=== PATIENT | female | born 1955 | race Caucasian/White ===

== ENCOUNTER 2019-10-24 12:29 | Emergency (ER) | payer OTHER ==
[~2019-10-24] VITALS: Ht 154.9 cm; Wt 63.5 kg
== END 2019-10-24 15:53 | disposition home or self-care (01) ==
LOC: ER 12:29 → EDBD 15:33 → ER 15:53
DX: S01.82XA Laceration with foreign body of other part of head, initial encounter (principal); W18.09XA Striking against other object with subsequent fall, initial encounter; Y93.89 Activity, other specified; Y92.488 Other paved roadways as the place of occurrence of the external cause; Y99.8 Other external cause status

== ENCOUNTER 2019-10-31 16:45 | Emergency (ER) | payer OTHER ==
[~2019-10-31] VITALS: Ht 167.6 cm; Wt 61.2 kg
== END 2019-10-31 18:24 | disposition home or self-care (01) ==
LOC: ER 16:45
DX: T81.33XD Disruption of traumatic injury wound repair, subsequent encounter (principal); Z48.02 Encounter for removal of sutures; S19.89 Other specified injuries of other specified part of neck

== ENCOUNTER 2020-07-28 23:44 | Inpatient (IN) | payer OTHER ==
[~2020-07-28] VITALS: Ht 167.6 cm; Wt 53.5 kg
[2020-07-29] MEDS ORDERED: GLIPIZIDE XL2.5 MG (00:03)
[2020-07-29] MEDS ORDERED: LEVOFLOXACIN5 ML (00:04)
--- NOTE | 2020-07-29 00:14 | NUR ---
SE RECIBE PTE EN SILLA DE COLLETTE, ALERTA DAPHNE NO ORIENTADA. PTE EN COMPANIA DE LINDQUIST COMADRE QUIEN REFIERE QUE LA PTE SE MUESTRA DESORIENTADA DESDE LA MANANA DE SHONDA Y QUE PRESENTA DESCONTROL EN LOS NIVELES DE AZUCAR EN LUIS MIGUEL. PTE CON DXT MAYOR DE 600MG/DL. PTE ES PRESENTADA A DR. BAIRD Y COLOCADA EN LA UNIDAD DE CRITICO CONECTADA A MONITOR CARDIACO, OXIMETRIA DE PULSO Y BARANDA ELEVADAS.
--- NOTE | 2020-07-29 02:09 | NUR ---
SE RECIBE PTE FEMENIANDE 68 YRS ALERTA CONCIENE Y TRANQUILA, LEVEMENTE DESORIE TADA EN TIEMPO. PTE LLEGA A LA JERALD DE EMERGENCIA POR AZUCAR MAYOR DE 600MG DL SE ACOMODA EN LA UNOIDAD DE CRITICO DE LA JERALD DE EMERGENCIA POR ORDEN DEL DR. BAIRD. SE COLOCA EN MONITOR CARIDIACO Y OXIEMTRIA SE LE REALIZA ANNI DE MUESTRAS DE SANCRE Y CULTIVOS DE LUIS MIGUEL ANAEROBICO Y AEROBICO. SE LE TOM CULTIVO DE ORINA Y MUESTRA DE ORINA. SE LE COMIENZA EN DRIP DE INSULINA REGULAR 100 EN 100.9NSS A 6 ML HRS POR IV PUMM . .9NSS [id number] A FULL DRIP . PTE SE LE DA A VICENTE TYLENOL 1 GR POR FIEBRE Y SE LE COMIENZA EN ANTIBIOTICO DE ROCEPHING 2 GR. SE LE MANTIENE BAJO OBSERVACION POR CAMBIOS.
--- NOTE | 2020-07-29 07:00 | NUR ---
PACIENTE ALERTA Y ORIENTADA EN OLYA BRAD ESFERAS, PRESENTA BUEN PATRON RESPIRATORIO Y LORETTA DE DOLOR. CONECTADA A MONITOR CARDIACO PRESENTANDO TAQUICARDIA SINOSAL (101-106 LAT/MIN), SPO2 98% EN AMBIENTE. CANALIZADA X 2 EN BRAZO RT, AMBAS PATENTES Y LIBRES DE S/S DE FLEBITIS E INFILTRACION, RECIBIENDO 0.45% NSS A 100 ML/RH. DR BAIRD ORDENA DESCONTINUAR 0.45% NSS Y ADMINISTRAR 0.9% NSS, SE REALIZAN CAMBIOS. PENDIENTE EVALUACION DE MEDICINA INTERNA CON DR Anel COLINDRES.
== END 2020-07-30 09:30 | disposition left against medical advice (07) | DRG 638 ==
LOC: ER 23:44 → ICU-2 07-29 11:29
PROVIDERS: ADMIT Internal Medicine; ATTEND Internal Medicine
PROC: BW28ZZZ Computerized Tomography (CT Scan) of Head (ICD-10-PCS; principal; 2020-07-29)
PROC: 4A033R1 Measurement of Arterial Saturation, Peripheral, Percutaneous Approach (ICD-10-PCS; 2020-07-29)
DX: E11.01 Type 2 diabetes mellitus with hyperosmolarity with coma (principal); E72.51 Non-ketotic hyperglycinemia; E11.65 Type 2 diabetes mellitus with hyperglycemia; I10 Essential (primary) hypertension; Z79.4 Long term (current) use of insulin; Z20.828 Contact with and (suspected) exposure to other viral communicable diseases

== ENCOUNTER → 2020-08-04 | Outpatient (CLI) | payer OTHER ==
[~2020-08-04] MED LIST: GLIPIZIDE XL2.5 MG; LEVOFLOXACIN5 ML
== END | disposition home or self-care (01) ==
LOC: RAD 12:10
DX: I10 Essential (primary) hypertension (principal)

== ENCOUNTER 2022-05-10 11:27 | Emergency (ER) | payer OTHER ==
[~2022-05-10] VITALS: Ht 167.6 cm; Wt 57.2 kg
[2022-05-10] MEDS ORDERED: NOVOLIN R100 UNIT/1 IM (12:24)
== END 2022-05-10 14:24 | disposition left against medical advice (07) ==
LOC: ER 11:27
DX: E11.65 Type 2 diabetes mellitus with hyperglycemia (principal); Z79.4 Long term (current) use of insulin; I10 Essential (primary) hypertension

== ENCOUNTER → 2023-06-29 | Emergency (ER) | payer OTHER ==
[~2023-06-29] VITALS: Ht 167.6 cm; Wt 67.1 kg
[~2023-06-29] MED LIST changes: +HUMULIN R100 UNIT/1; +LOTREL 10-20 M1 EACH; +NOVOLIN R100 UNIT/1 IM
== END | disposition left against medical advice (07) ==
LOC: ER 00:22
DX: Z53.21 Procedure and treatment not carried out due to patient leaving prior to being seen by health care provider (principal)

== ENCOUNTER 2023-07-15 19:04 | Inpatient (IN) | payer OTHER ==
[~2023-07-15] VITALS: Ht 167.6 cm; Wt 63.5 kg
[2023-07-15 20:52] LABS: PH,URINE 5.5 (5.0-8.0); URINE APPEARANCE Turbid; URINE BILIRRUBIN Negative (NEGATIVE); URINE BLOOD Moderate; URINE COLOR Yellow; URINE LEUKOCYTE Moderate; URINE NITRATE Positive; URINE PROTEIN Trace (NEGATIVE); URINE UROBILINOGEN 0.2 E.U./dl
[2023-07-15 20:55] LABS: URINE RBC 87.6 uL (0.0-20.8)
[2023-07-15 21:19] LABS: HEMATOCRIT 36.5 % (36.0-45.00); HEMOGLOBIN 11.5 g/dL (12.0-15.00); MEAN CELL VOLUME 103.2 fL (80.00-100.00); MEAN CORPUSCULAR HEMOGLOBIN 32.5 pg (27.00-32.0); MEAN CORPUSCULAR HGB CONC 31.4 g/dl (32.0-36.0); PLATELET COUNT 284 K/uL (150-450); RED BLOOD COUNT 3.54 M/uL (4.00-6.00); RED CELL DISTRIBUTION WIDTH 15.3 % (11.5-14.5)
[2023-07-15 21:29] LABS: URINE BACTERIA > 9821.2 uL (0.0-1933); URINE EPITHELIAL CELLS > 201.7 uL (0.0-38.8); URINE GLUCOSE >=1000 MG/DL (NEGATIVE); URINE MUCUS SCANT
[2023-07-15 21:30] LABS: URINE BACTERIA MANY
[2023-07-15 21:40] LABS: ALBUMIN 2.9 gm/dL (3.4-5.0); BILIRUBIN TOTAL 1.43 mg/dL (0.3-1.2); CALCIUM 8.4 mg/dL (8.5-10.1); CREATININE SERUM 1.05 mg/dL (0.55-1.02); GFR 51.96; GLOBULINA 3.4 G/DL (2.4-3.5); POTASSIUM 3.8 mEq/L (3.5-5.1); TOTAL PROTEIN 6.3 gm/dL (6.4-8.2)
[2023-07-16 01:00] LABS: ABG PH 7.369 (7.35-7.45); ABG PO2 123.1 mmHg (80-100); ABG pCO2 28.6 mmHg (35-45); BASE EXCESS -7.6 mmol/l; BICARBONATE 16.1 mmol/l (23-25); SaO2 98.5 %
[2023-07-16 02:18] LABS: CKMB 2.4 NG/ML (0.5-3.6)
[2023-07-16 03:54] LABS: allen test SATISFACTORY; o2 21 %; puncture site RADIAL RIGHT
[2023-07-16 16:04] LABS: CKMB 1.6 NG/ML (0.5-3.6)
[2023-07-16 22:35] LABS: CKMB 1.6 NG/ML (0.5-3.6)
[2023-07-17 07:33] LABS: HEMATOCRIT 27.4 % (36.0-45.00); HEMOGLOBIN 9.6 g/dL (12.0-15.00); MEAN CELL VOLUME 96.3 fL (80.00-100.00); MEAN CORPUSCULAR HEMOGLOBIN 33.9 pg (27.00-32.0); MEAN CORPUSCULAR HGB CONC 35.2 g/dl (32.0-36.0); PLATELET COUNT 271 K/uL (150-450); RED BLOOD COUNT 2.84 M/uL (4.00-6.00); RED CELL DISTRIBUTION WIDTH 15.1 % (11.5-14.5)
[2023-07-17 07:49] LABS: PARTIAL THROMBOPLASTIN TIME 26.3 SECONDS (22.0-34.0); PROTHROMBIN TIME 10.5 SECONDS (9.0-11.5)
[2023-07-17 07:50] LABS: ALBUMIN 2.1 gm/dL (3.4-5.0); BILIRUBIN TOTAL 0.54 mg/dL (0.3-1.2); BILIRUBIN,CONJUGATED 0.16 mg/dL (0.0-0.2); BILIRUBIN,UNCONJUGATED 0.38 mg/dL (0.0-0.6); CALCIUM 7.6 mg/dL (8.5-10.1); CHOL HDL RATIO 2.1 (0-5.0); CREATININE SERUM 0.68 mg/dL (0.55-1.02); GFR 85.79; GLOBULINA 2.7 G/DL (2.4-3.5); POTASSIUM 3.19 mEq/L (3.5-5.1); TOTAL PROTEIN 4.8 gm/dL (6.4-8.2)
[2023-07-17 07:53] LABS: C-REACTIVE PROTEIN 1.04 MG/DL (0.00-0.29)
[2023-07-18 07:59] LABS: URINE BACTERIA 59.2 uL (0.0-1933); URINE EPITHELIAL CELLS 27.6 uL (0.0-38.8); URINE RBC 108.6 uL (0.0-20.8)
[2023-07-18 08:18] LABS: URINE BILIRRUBIN SMALL (NEGATIVE); URINE BLOOD TRACE; URINE LEUKOCYTE NEGATIVE; URINE NITRATE NEGATIVE; URINE PROTEIN TRACE (NEGATIVE); URINE UROBILINOGEN 0.2 E.U./dl
[2023-07-18 08:19] LABS: URINE APPEARANCE SL CLOUDY; URINE COLOR YELLOW; URINE GLUCOSE 100 MG/DL (NEGATIVE)
[2023-07-18 12:24] LABS: ALBUMIN 2.1 gm/dL (3.4-5.0); BILIRUBIN TOTAL 0.89 mg/dL (0.3-1.2); CALCIUM 7.8 mg/dL (8.5-10.1); CREATININE SERUM 0.61 mg/dL (0.55-1.02); GFR 97.25; GLOBULINA 2.8 G/DL (2.4-3.5); POTASSIUM 4.93 mEq/L (3.5-5.1); TOTAL PROTEIN 4.9 gm/dL (6.4-8.2)
[2023-07-20 04:51] LABS: HEMATOCRIT 27.7 % (36.0-45.00); HEMOGLOBIN 9.5 g/dL (12.0-15.00); MEAN CELL VOLUME 97.4 fL (80.00-100.00); MEAN CORPUSCULAR HEMOGLOBIN 33.6 pg (27.00-32.0); MEAN CORPUSCULAR HGB CONC 34.5 g/dl (32.0-36.0); PLATELET COUNT 275 K/uL (150-450); RED BLOOD COUNT 2.85 M/uL (4.00-6.00); RED CELL DISTRIBUTION WIDTH 15.6 % (11.5-14.5)
[2023-07-20 05:16] LABS: CALCIUM 7.9 mg/dL (8.5-10.1); CREATININE SERUM 0.56 mg/dL (0.55-1.02); GFR 107.34; MAGNESIUM 1.7 mg/dL (1.8-2.4); PHOSPHOROUS 2.5 mg/dL (2.5-4.9); POTASSIUM 3.74 mEq/L (3.5-5.1)
[2023-07-22 12:33] LABS: ABG PO2 72.4 mmHg (80-100); ABG pCO2 28.5 mmHg (35-45)
[2023-07-22 12:34] LABS: BASE EXCESS -0.8 mmol/l; BICARBONATE 21.2 mmol/l (23-25); SaO2 95.7 %; Tco2 22.1 mmol/l; allen test SATISFACTORY; o2 21 %; puncture site RADIAL RIGHT
[2023-07-23 08:26] LABS: ALBUMIN 2.6 gm/dL (3.4-5.0); BILIRUBIN TOTAL 0.43 mg/dL (0.3-1.2); CALCIUM 8.6 mg/dL (8.5-10.1); CREATININE SERUM 0.72 mg/dL (0.55-1.02); GFR 80.31; GLOBULINA 2.7 G/DL (2.4-3.5); MAGNESIUM 1.9 mg/dL (1.8-2.4); PHOSPHOROUS 3.1 mg/dL (2.5-4.9); POTASSIUM 3.52 mEq/L (3.5-5.1); TOTAL PROTEIN 5.3 gm/dL (6.4-8.2)
[2023-07-23 08:34] LABS: C-REACTIVE PROTEIN 3.24 MG/DL (0.00-0.29)
[2023-07-23 08:35] LABS: HEMATOCRIT 28.1 % (36.0-45.00); HEMOGLOBIN 9.6 g/dL (12.0-15.00); MEAN CORPUSCULAR HEMOGLOBIN 33.7 pg (27.00-32.0); MEAN CORPUSCULAR HGB CONC 34.1 g/dl (32.0-36.0); PLATELET COUNT 283 K/uL (150-450); RED BLOOD COUNT 2.84 M/uL (4.00-6.00); RED CELL DISTRIBUTION WIDTH 16.1 % (11.5-14.5)
[2023-07-25 06:54] LABS: HEMATOCRIT 28.5 % (36.0-45.00); HEMOGLOBIN 9.6 g/dL (12.0-15.00); MEAN CELL VOLUME 100.1 fL (80.00-100.00); MEAN CORPUSCULAR HEMOGLOBIN 33.8 pg (27.00-32.0); MEAN CORPUSCULAR HGB CONC 33.7 g/dl (32.0-36.0); PLATELET COUNT 292 K/uL (150-450); RED BLOOD COUNT 2.85 M/uL (4.00-6.00); RED CELL DISTRIBUTION WIDTH 15.4 % (11.5-14.5)
[2023-07-25 07:50] LABS: ALBUMIN 2.3 gm/dL (3.4-5.0); BILIRUBIN TOTAL 0.72 mg/dL (0.3-1.2); CALCIUM 8.2 mg/dL (8.5-10.1); CREATININE SERUM 0.64 mg/dL (0.55-1.02); GFR 92.01; GLOBULINA 2.9 G/DL (2.4-3.5); POTASSIUM 4.06 mEq/L (3.5-5.1); TOTAL PROTEIN 5.2 gm/dL (6.4-8.2)
[2023-07-25] MEDS ORDERED: HUMULIN N100 UNIT/2 SUBCUTANEO (15:10)
[2023-07-25] MEDS ORDERED: HYDRODIURIL12.5 MG PO (15:10)
[2023-07-25] MEDS ORDERED: PROTEINEX-18 LI30 ML PO (15:10)
[2023-07-25] MEDS ORDERED: LOTREL 10-20 M1 EACH PO (15:10)
[2023-07-25] MEDS ORDERED: HUMULIN R100 UNIT/1 SUBCUTANEO (15:10)
[2023-07-25] MEDS ORDERED: FLUCONAZOLE150 MG PO (15:10)
[2023-07-25] MEDS ORDERED: FAMOTIDINE20 MG PO (15:10)
[2023-07-25] MEDS ORDERED: ATORVASTATIN CA20 MG PO (15:12)
== END 2023-07-25 17:29 | disposition home or self-care (01) | DRG 689 ==
LOC: ER 19:04 → MEDJ 07-16 00:05
PROVIDERS: General Practice; Internal Medicine; Specialist; ADMIT Internal Medicine Geriatric Medicine; ATTEND Internal Medicine Geriatric Medicine
PROC: 4A12X4Z Monitoring of Cardiac Electrical Activity, External Approach (ICD-10-PCS; 2023-07-16)
PROC: B54DZZZ Ultrasonography of Bilateral Lower Extremity Veins (ICD-10-PCS; principal; 2023-07-19)
PROC: BW24YZZ Computerized Tomography (CT Scan) of Chest and Abdomen using Other Contrast (ICD-10-PCS; 2023-07-22)
PROC: B24BZZZ Ultrasonography of Heart with Aorta (ICD-10-PCS; 2023-07-22)
DX: N39.0 Urinary tract infection, site not specified (principal); E11.00 Type 2 diabetes mellitus with hyperosmolarity without nonketotic hyperglycemic-hyperosmolar coma (NKHHC); J90 Pleural effusion, not elsewhere classified; I10 Essential (primary) hypertension; L89.629 Pressure ulcer of left heel, unspecified stage; L08.9 Local infection of the skin and subcutaneous tissue, unspecified; I83.024 Varicose veins of left lower extremity with ulcer of heel and midfoot; D64.9 Anemia, unspecified; B95.61 Methicillin susceptible Staphylococcus aureus infection as the cause of diseases classified elsewhere; E11.65 Type 2 diabetes mellitus with hyperglycemia; E11.621 Type 2 diabetes mellitus with foot ulcer; B96.1 Klebsiella pneumoniae [K. pneumoniae] as the cause of diseases classified elsewhere; B95.2 Enterococcus as the cause of diseases classified elsewhere; E78.5 Hyperlipidemia, unspecified; F43.20 Adjustment disorder, unspecified; Z79.4 Long term (current) use of insulin

== ENCOUNTER 2024-03-14 11:25 | Inpatient (IN) | payer OTHER ==
[~2024-03-14] VITALS: Ht 162.6 cm; Wt 59.0 kg
[~2024-03-14 11:25] MED LIST changes: +ATORVASTATIN CA20 MG PO; +FAMOTIDINE20 MG PO; +FLUCONAZOLE150 MG PO; +HUMULIN N100 UNIT/2 SUBCUTANEO; +HUMULIN R100 UNIT/1 SUBCUTANEO; +HYDRODIURIL12.5 MG PO; +LOTREL 10-20 M1 EACH PO; +PROTEINEX-18 LI30 ML PO; +SODIUM BICARBONATE 50MEQ/50ML VIAL IV ONE
[2024-03-14] MEDS ORDERED: 0.9 % SODIUM CHLORIDE 1,000 ML IV STA (11:29)
[2024-03-14] MEDS ORDERED: SODIUM BICARBONATE 1 MEQ/ML DISP.SYRIN 50ML IV ONE (11:30)
[2024-03-14] MEDS ORDERED: INSULIN REGULAR, HUMAN 1,000 UNIT/10 ML UNITS IV NR (11:30)
[2024-03-14] MEDS ORDERED: DEXTROSE 50 % IN WATER 0.5 G/ML DISP.SYRIN IV PRN (11:45)
[2024-03-14] MEDS ORDERED: INSULIN REGULAR, HUMAN 1,000 UNIT/10 ML UNITS IV SCH (11:45)
[2024-03-14] MEDS ORDERED: INSULIN LISPRO 1,000 UNIT/10 ML UNITS SUBCUTANEO PRN (11:45)
[2024-03-14] MEDS ORDERED: NOREPINEPHRINE BITARTRATE 1 MG/ML AMPUL IV ONE (11:57)
[2024-03-14] MEDS ORDERED: PIPERACILLIN/TAZOBACTAM SODIUM 3.375 GM VIAL IV ONE ×2 (11:58→16:45)
[2024-03-14] MEDS ORDERED: PIPERACILLIN/TAZOBACTAM SODIUM 3.375 GM in 0.9 % SODIUM CHLORIDE 100 ML IV SCH (12:00)
[2024-03-14] MEDS ORDERED: NOREPINEPHRINE BITARTRATE 8 MG in DEXTROSE 5 % IN WATER 250 ML IV SCH (12:00)
[2024-03-14 12:16] LABS: ABG pCO2 33.3 mmHg (35-45); BASE EXCESS -23.3 mmol/l; BICARBONATE 7.6 mmol/l (23-25); SaO2 99.5 %; Tco2 8.6 mmol/l; allen test SATISFACTORY; puncture site RADIAL LEFT
[2024-03-14 12:17] LABS: ABG PH 6.978 (7.35-7.45); o2 100 %
[2024-03-14 12:40] LABS: URINE BILIRRUBIN Negative (NEGATIVE); URINE BLOOD Large; URINE COLOR Yellow; URINE LEUKOCYTE Moderate; URINE NITRATE Negative; URINE UROBILINOGEN 0.2 E.U./dl
[2024-03-14 12:41] LABS: URINE CAST 13.51 uL (0.0-1.40); URINE EPITHELIAL CELLS 89.9 uL (0.0-38.8)
[2024-03-14 12:42] LABS: ALBUMIN 2.4 gm/dL (3.4-5.0); BILIRUBIN TOTAL 0.55 mg/dL (0.3-1.2); CALCIUM 7.9 mg/dL (8.5-10.1); CREATININE SERUM 3.46 mg/dL (0.55-1.02); GFR 13.12; GLOBULINA 3.3 G/DL (2.4-3.5); POTASSIUM 5.32 mEq/L (3.5-5.1); TOTAL PROTEIN 5.7 gm/dL (6.4-8.2)
[2024-03-14 12:55] LABS: INR 1.03; PARTIAL THROMBOPLASTIN TIME 32.4 SECONDS (22.0-34.0); PROTHROMBIN TIME 10.8 SECONDS (9.0-11.5)
[2024-03-14 13:02] LABS: URINE BACTERIA > 9821.5 uL (0.0-1933); URINE GLUCOSE >=1000 MG/DL (NEGATIVE); URINE KETONE 40 (NEGATIVE); URINE PROTEIN 100 (NEGATIVE); URINE RBC > 10558.9 uL (0.0-20.8); URINE WBC > 5548.3 uL (0.0-23.2)
[2024-03-14 13:04] LABS: URINE APPEARANCE TURBID; URINE YEAST MANY /hpf
[2024-03-14 13:06] LABS: HEMATOCRIT 30.1 % (36.0-45.00); MEAN CORPUSCULAR HGB CONC 28.8 g/dl (32.0-36.0); PLATELET COUNT 333 K/uL (150-450); RED BLOOD COUNT 2.76 M/uL (4.00-6.00); RED CELL DISTRIBUTION WIDTH 14.3 % (11.5-14.5)
[2024-03-14 13:21] LABS: HEMOGLOBIN 8.7 g/dL (12.0-15.00); MEAN CORPUSCULAR HEMOGLOBIN 31.5 pg (27.00-32.0)
[2024-03-14 13:40] LABS: ABG PH 7.032 (7.35-7.45); ABG PO2 577.7 mmHg (80-100); ABG pCO2 28.4 mmHg (35-45); BASE EXCESS -22.3 mmol/l; BICARBONATE 7.4 mmol/l (23-25); SaO2 99.9 %; Tco2 8.2 mmol/l
[2024-03-14 13:41] LABS: o2 100 %
[2024-03-14 13:43] LABS: puncture site BRADIAL RIGHT
[2024-03-14] MEDS ORDERED: 0.9 % SODIUM CHLORIDE 1,000 ML IV ONE (17:15)
[2024-03-14] MEDS ORDERED: 0.9 % SODIUM CHLORIDE 1,000 ML IV SCH ×2 (17:15→17:30)
[2024-03-14] MEDS ORDERED: MEROPENEM 500 MG/VIAL VIAL IV SCH (17:16)
[2024-03-14] MEDS ORDERED: PANTOPRAZOLE SODIUM 40 MG/VIAL VIAL IV SCH (17:17)
[2024-03-14] MEDS ORDERED: SODIUM BICARBONATE 100 MEQ in SODIUM CHLORIDE 0.45 % 1,000 ML IV ONE (17:30)
[2024-03-14] MEDS ORDERED: ACETAMINOPHEN 500 MG GEL..CAP PO PRN (17:30)
[2024-03-14] MEDS ORDERED: ONDANSETRON HCL 4 MG in 0.9 % SODIUM CHLORIDE 50 ML IV PRN (17:30)
[2024-03-14 17:43] LABS: ABG PH 7.144 (7.35-7.45); ABG PO2 261.9 mmHg (80-100); ABG pCO2 23.9 mmHg (35-45); BASE EXCESS -19.1 mmol/l; SaO2 99.6 %; Tco2 8.8 mmol/l
[2024-03-14 17:44] LABS: allen test SATISFACTORY; o2 100 %; puncture site RADIAL RIGHT
[2024-03-14 17:52] LABS: CALCIUM 7.7 mg/dL (8.5-10.1); CREATININE SERUM 3.65 mg/dL (0.55-1.02); GFR 12.34; POTASSIUM 3.05 mEq/L (3.5-5.1)
[2024-03-14] MEDS ORDERED: SODIUM BICARBONATE 50MEQ/50ML VIAL IV ONE (18:44)
[2024-03-14 20:07] LABS: ABG PH 7.217 (7.35-7.45); ABG PO2 209.3 mmHg (80-100); ABG pCO2 26.6 mmHg (35-45); BASE EXCESS -15.5 mmol/l; BICARBONATE 10.6 mmol/l (23-25); SaO2 99.4 %; Tco2 11.4 mmol/l
[2024-03-14 20:08] LABS: allen test SATISFACTORY; o2 40 %; puncture site RADIAL RIGHT
[2024-03-14] MEDS ORDERED: POTASSIUM CHLORIDE IN WATER 100 ML IV ONE (20:15)
[2024-03-14 21:08] LABS: CALCIUM 7.5 mg/dL (8.5-10.1); CREATININE SERUM 3.51 mg/dL (0.55-1.02); GFR 12.91
[2024-03-14 21:12] LABS: MAGNESIUM 1.9 mg/dL (1.8-2.4); PHOSPHOROUS 4.9 mg/dL (2.5-4.9)
[2024-03-14 21:52] LABS: POTASSIUM 2.94 mEq/L (3.5-5.1)
[2024-03-14] MEDS ORDERED: INSULIN REGULAR, HUMAN 1,000 UNIT/10 ML UNITS ONE (22:24)
[2024-03-14] MEDS ORDERED: POTASSIUM CHLORIDE IN 0.9%NACL 1,000 ML IV ONE (22:45)
[2024-03-15] MEDS ORDERED: POTASSIUM BICARBONATE/CIT AC 25 MEQ TABLET.EFF PO SCH
[2024-03-15] MEDS ORDERED: INSULIN REGULAR, HUMAN 100 UNITS in 0.9 % SODIUM CHLORIDE 100 ML IV SCH (05:30)
[2024-03-15 07:20] LABS: HEMATOCRIT 24.2 % (36.0-45.00); MEAN CELL VOLUME 92.7 fL (80.00-100.00); MEAN CORPUSCULAR HGB CONC 34.2 g/dl (32.0-36.0); PLATELET COUNT 264 K/uL (150-450); RED BLOOD COUNT 2.61 M/uL (4.00-6.00); RED CELL DISTRIBUTION WIDTH 12.5 % (11.5-14.5)
[2024-03-15 07:41] LABS: ALBUMIN 2.3 gm/dL (3.4-5.0); BILIRUBIN TOTAL 0.32 mg/dL (0.3-1.2); CALCIUM 7.6 mg/dL (8.5-10.1); CHOL HDL RATIO 2.6 (0-5.0); CREATININE SERUM 3.6 mg/dL (0.55-1.02); GFR 12.54; GLOBULINA 3.3 G/DL (2.4-3.5); POTASSIUM 3.63 mEq/L (3.5-5.1); TOTAL PROTEIN 5.6 gm/dL (6.4-8.2); TSH 1.04 uIU/mL (0.358-3.74)
[2024-03-15 08:38] LABS: HEMOGLOBIN 8.3 g/dL (12.0-15.00); MEAN CORPUSCULAR HEMOGLOBIN 31.8 pg (27.00-32.0)
[2024-03-15] MEDS ORDERED: DEXTROSE 5 % IN WATER 1,000 ML IV ONE (08:45)
[2024-03-15] MEDS ORDERED: 0.9 % SODIUM CHLORIDE 1,000 ML IV SCH (08:45)
[2024-03-15] MEDS ORDERED: ENOXAPARIN SODIUM 30 MG/0.3 ML SYRINGE SUBCUTANEO SCH (09:00)
[2024-03-15] MEDS ORDERED: CHLORHEXIDINE GLUCONATE 15ML BRUSH KIT MM SCH (10:43)
[2024-03-15] MEDS ORDERED: POTASSIUM CHLORIDE 20MEQ/100ML H2O PB IV NR (11:15)
[2024-03-15 15:17] LABS: ABG PH 7.404 (7.35-7.45); ABG PO2 181.6 mmHg (80-100); ABG pCO2 35.7 mmHg (35-45); BASE EXCESS -2.3 mmol/l; BICARBONATE 21.8 mmol/l (23-25); SaO2 99.6 %; Tco2 22.9 mmol/l
[2024-03-15 15:21] LABS: allen test SATISFACTORY; o2 35 %; puncture site RADIAL LEFT
[2024-03-15 16:00] LABS: CALCIUM 7.5 mg/dL (8.5-10.1); CREATININE SERUM 3.47 mg/dL (0.55-1.02); GFR 13.08; POTASSIUM 4.74 mEq/L (3.5-5.1)
[2024-03-15] MEDS ORDERED: CARBOXYMETHYLCELLULOSE SODIUM 1 EACH DROPERETTE OP SCH (17:00)
[2024-03-15] MEDS ORDERED: CHLORHEXIDINE GLUCONATE 120 ML BOTTLE TOP ONE (20:59)
[2024-03-15] MEDS ORDERED: LINEZOLID IN DEXTROSE 5% 300 ML IV SCH (21:00)
[2024-03-15] MEDS ORDERED: INSULIN REGULAR, HUMAN 1,000 UNIT/10 ML UNITS ONE (22:36)
[2024-03-16 05:22] LABS: MEAN CELL VOLUME 92.3 fL (80.00-100.00); MEAN CORPUSCULAR HGB CONC 34.3 g/dl (32.0-36.0); PLATELET COUNT 201 K/uL (150-450); RED BLOOD COUNT 2.48 M/uL (4.00-6.00); RED CELL DISTRIBUTION WIDTH 13.2 % (11.5-14.5)
[2024-03-16 05:24] LABS: MEAN CORPUSCULAR HEMOGLOBIN 31.4 pg (27.00-32.0)
[2024-03-16] MEDS ORDERED: INSULIN REGULAR, HUMAN 1,000 UNIT/10 ML UNITS ONE (05:26)
[2024-03-16 05:28] LABS: HEMATOCRIT 22.9 % (36.0-45.00); HEMOGLOBIN 7.8 g/dL (12.0-15.00)
[2024-03-16 06:23] LABS: ALBUMIN 2.3 gm/dL (3.4-5.0); BILIRUBIN TOTAL 0.3 mg/dL (0.3-1.2); CALCIUM 7.8 mg/dL (8.5-10.1); CREATININE SERUM 3.65 mg/dL (0.55-1.02); GFR 12.34; MAGNESIUM 1.6 mg/dL (1.8-2.4); PHOSPHOROUS 3.1 mg/dL (2.5-4.9); POTASSIUM 4.49 mEq/L (3.5-5.1); TOTAL PROTEIN 5.3 gm/dL (6.4-8.2)
[2024-03-16 06:27] LABS: C-REACTIVE PROTEIN 6.45 MG/DL (0.00-0.29)
[2024-03-16 06:44] LABS: PH,URINE 5.5 (5.0-8.0); URINE APPEARANCE Turbid; URINE BILIRRUBIN Negative (NEGATIVE); URINE BLOOD Large; URINE COLOR Yellow; URINE GLUCOSE Negative (NEGATIVE); URINE KETONE 15 (NEGATIVE); URINE LEUKOCYTE Moderate; URINE NITRATE Negative; URINE UROBILINOGEN 0.2 E.U./dl
[2024-03-16 06:46] LABS: URINE CAST 2.65 uL (0.0-1.40)
[2024-03-16 07:25] LABS: URINE BACTERIA > 9821.5 uL (0.0-1933); URINE PROTEIN 300 (NEGATIVE); URINE RBC > 10558.9 uL (0.0-20.8); URINE WBC > 5548.3 uL (0.0-23.2)
[2024-03-16 07:26] LABS: URINE YEAST MODERATE /hpf
[2024-03-16 08:42] LABS: MYCOPLASMA PNEUMONIAE IGM REACTIVE (NO REACTIVE)
[2024-03-16] MEDS ORDERED: DEXTROSE 50 % IN WATER 0.5 G/ML VIAL IV PRN (08:45)
[2024-03-16] MEDS ORDERED: INSULIN LISPRO 1,000 UNIT/10 ML UNITS SUBCUTANEO PRN (08:45)
[2024-03-16] MEDS ORDERED: INSULIN NPH HUMAN ISOPHANE 1,000 UNITS/10 ML UNITS SUBCUTANEO SCH (09:00)
[2024-03-16] MEDS ORDERED: ACETAMINOPHEN 650 MG SUPP.RECT RECTAL ONE (09:13)
[2024-03-16] MEDS ORDERED: DEXTROSE 5 % IN WATER 1,000 ML IV SCH (09:15)
[2024-03-16] MEDS ORDERED: ACETAMINOPHEN 650 MG SUPP.RECT RECTAL PRN (09:30)
[2024-03-16 09:37] LABS: ABG PH 7.338 (7.35-7.45); ABG PO2 120.4 mmHg (80-100); ABG pCO2 37.3 mmHg (35-45); BASE EXCESS -5.6 mmol/l; BICARBONATE 19.6 mmol/l (23-25); SaO2 98.3 %; Tco2 20.7 mmol/l
[2024-03-16 09:38] LABS: allen test SATISFACTORY; o2 35 %; puncture site RADIAL RIGHT
[2024-03-16] MEDS ORDERED: INSULIN NPH HUMAN ISOPHANE 1,000 UNITS/10 ML UNITS SUBCUTANEO ONE ×2 (09:42→18:16)
[2024-03-16] MEDS ORDERED: INSULIN LISPRO 1,000 UNIT/10 ML UNITS SUBCUTANEO ONE (12:05)
[2024-03-16] MEDS ORDERED: AZITHROMYCIN 500 MG VIAL IV NR (13:45)
[2024-03-16] MEDS ORDERED: DEXTROSE 5 %-0.45 % SOD CHLORD 1,000 ML IV SCH (15:25)
[2024-03-16] MEDS ORDERED: ZINC OXIDE 30 GM,NYSTATIN 30 GM,SILVER SULFADIAZINE 50 GM TOP SCH (17:00)
[2024-03-17 07:58] LABS: ALBUMIN 2.1 gm/dL (3.4-5.0); BILIRUBIN TOTAL 0.45 mg/dL (0.3-1.2); CALCIUM 7.6 mg/dL (8.5-10.1); CREATININE SERUM 3.85 mg/dL (0.55-1.02); GFR 11.6; GLOBULINA 2.8 G/DL (2.4-3.5); POTASSIUM 3.92 mEq/L (3.5-5.1); TOTAL PROTEIN 4.9 gm/dL (6.4-8.2)
[2024-03-17 08:12] LABS: HEMATOCRIT 26.2 % (36.0-45.00); MEAN CELL VOLUME 90.5 fL (80.00-100.00); MEAN CORPUSCULAR HGB CONC 35.1 g/dl (32.0-36.0); PLATELET COUNT 184 K/uL (150-450); RED CELL DISTRIBUTION WIDTH 14.1 % (11.5-14.5)
[2024-03-17 08:13] LABS: HEMOGLOBIN 9.2 g/dL (12.0-15.00); MEAN CORPUSCULAR HEMOGLOBIN 31.7 pg (27.00-32.0)
[2024-03-17] MEDS ORDERED: SILVER SULFADIAZINE 50 GM JAR TOP ONE (09:12)
[2024-03-17 10:47] LABS: ABG PO2 116.9 mmHg (80-100); ABG pCO2 32.7 mmHg (35-45); BASE EXCESS -5.1 mmol/l; BICARBONATE 18.9 mmol/l (23-25); SaO2 98.4 %; Tco2 19.9 mmol/l; allen test SATISFACTORY; o2 35 %; puncture site RADIAL LEFT
[2024-03-17] MEDS ORDERED: AZITHROMYCIN 250 MG in 0.9 % SODIUM CHLORIDE 250 ML IV SCH (12:00)
[2024-03-17] MEDS ORDERED: DEXTROSE 5 % AND 0.9 % NACL 1,000 ML IV SCH (12:15)
[2024-03-17] MEDS ORDERED: AZITHROMYCIN 2 MG/ML REDILUIDO IV SCH (17:00)
[2024-03-17] MEDS ORDERED: INSULIN NPH HUMAN ISOPHANE 1,000 UNITS/10 ML UNITS SUBCUTANEO SCH (17:00)
[2024-03-18 07:42] LABS: HEMATOCRIT 29.2 % (36.0-45.00); HEMOGLOBIN 9.9 g/dL (12.0-15.00); MEAN CELL VOLUME 90.1 fL (80.00-100.00); MEAN CORPUSCULAR HEMOGLOBIN 30.6 pg (27.00-32.0); PLATELET COUNT 181 K/uL (150-450); RED BLOOD COUNT 3.25 M/uL (4.00-6.00); RED CELL DISTRIBUTION WIDTH 14.6 % (11.5-14.5)
[2024-03-18 08:09] LABS: CALCIUM 7.6 mg/dL (8.5-10.1); GFR 10.02; POTASSIUM 4.09 mEq/L (3.5-5.1)
[2024-03-18 08:34] LABS: CREATININE SERUM 4.37 mg/dL (0.55-1.02)
[2024-03-18 09:16] LABS: ABG PH 7.354 (7.35-7.45); ABG PO2 158.6 mmHg (80-100); ABG pCO2 31.4 mmHg (35-45); SaO2 99.2 %
[2024-03-18 09:17] LABS: BASE EXCESS -7.1 mmol/l; BICARBONATE 17.1 mmol/l (23-25); Tco2 18.1 mmol/l
[2024-03-18 09:18] LABS: allen test SATISFACTORY; o2 35 %; puncture site RADIAL LEFT
[2024-03-18 13:07] LABS: ABG PH 7.361 (7.35-7.45); ABG PO2 154.8 mmHg (80-100); ABG pCO2 31.2 mmHg (35-45); BASE EXCESS -6.8 mmol/l; BICARBONATE 17.3 mmol/l (23-25); SaO2 99.2 %; Tco2 18.3 mmol/l
[2024-03-18 13:08] LABS: allen test SATISFACTORY; o2 35 %; puncture site RADIAL RIGHT
[2024-03-18] MEDS ORDERED: FUROsemide 40 MG/4 ML VIAL IV NR (17:00)
[2024-03-18] MEDS ORDERED: GABAPENTIN 300 MG CAPSULE PO SCH (21:00)
[2024-03-19 07:08] LABS: ALBUMIN 1.7 gm/dL (3.4-5.0); BILIRUBIN TOTAL 0.4 mg/dL (0.3-1.2); CALCIUM 7.6 mg/dL (8.5-10.1); GFR 9.67; GLOBULINA 2.9 G/DL (2.4-3.5); POTASSIUM 4.08 mEq/L (3.5-5.1); TOTAL PROTEIN 4.6 gm/dL (6.4-8.2)
[2024-03-19 07:43] LABS: CREATININE SERUM 4.51 mg/dL (0.55-1.02)
[2024-03-19] MEDS ORDERED: 0.9 % SODIUM CHLORIDE 1,000 ML IV SCH (18:30)
[2024-03-19] MEDS ORDERED: HEPARIN SODIUM,PORCINE 5,000 UNITS/ML VIAL IV NR (20:00)
[2024-03-19] MEDS ORDERED: INSULIN NPH HUMAN ISOPHANE 1,000 UNITS/10 ML UNITS SUBCUTANEO SCH (21:00)
[2024-03-20 06:51] LABS: HEMATOCRIT 29.7 % (36.0-45.00); HEMOGLOBIN 10.2 g/dL (12.0-15.00); MEAN CELL VOLUME 89.3 fL (80.00-100.00); MEAN CORPUSCULAR HEMOGLOBIN 30.7 pg (27.00-32.0); MEAN CORPUSCULAR HGB CONC 34.4 g/dl (32.0-36.0); PLATELET COUNT 180 K/uL (150-450); RED BLOOD COUNT 3.32 M/uL (4.00-6.00); RED CELL DISTRIBUTION WIDTH 14.2 % (11.5-14.5)
[2024-03-20 07:11] LABS: ALBUMIN 1.6 gm/dL (3.4-5.0); BILIRUBIN TOTAL 0.39 mg/dL (0.3-1.2); CALCIUM 7.6 mg/dL (8.5-10.1); CREATININE SERUM 3.88 mg/dL (0.55-1.02); GFR 11.5; GLOBULINA 2.8 G/DL (2.4-3.5); POTASSIUM 3.08 mEq/L (3.5-5.1); TOTAL PROTEIN 4.4 gm/dL (6.4-8.2)
[2024-03-20] MEDS ORDERED: INSULIN NPH HUMAN ISOPHANE 1,000 UNITS/10 ML UNITS SUBCUTANEO SCH (09:00)
[2024-03-20] MEDS ORDERED: INSULIN LISPRO 1,000 UNIT/10 ML UNITS SUBCUTANEO PRN (11:15)
[2024-03-20] MEDS ORDERED: POTASSIUM CHLORIDE 20MEQ/100ML H2O PB IV NR (15:30)
[2024-03-21 07:27] LABS: CALCIUM 7.6 mg/dL (8.5-10.1)
[2024-03-21 07:30] LABS: GFR 11.23
[2024-03-21 07:32] LABS: CREATININE SERUM 3.96 mg/dL (0.55-1.02); POTASSIUM 6.89 mEq/L (3.5-5.1)
[2024-03-21] MEDS ORDERED: INSULIN NPH HUMAN ISOPHANE 1,000 UNITS/10 ML UNITS SUBCUTANEO SCH (09:00)
[2024-03-21] MEDS ORDERED: HEPARIN SODIUM,PORCINE 5,000 UNITS/ML VIAL IJ ONE (16:45)
[2024-03-21] MEDS ORDERED: LACTOBACILLUS ACIDOPHILUS 1 CAP CAP PO SCH (17:00)
[2024-03-21] MEDS ORDERED: INSULIN NPH HUMAN ISOPHANE 1,000 UNITS/10 ML UNITS SUBCUTANEO STA (22:50)
[2024-03-22] MEDS ORDERED: SODIUM POLYSTYRENE SULFONATE 30G/8 TSP PO SCH (07:15)
[2024-03-22] MEDS ORDERED: LOPERAMIDE HCL 2 MG CAPSULE PO SCH (09:27)
[2024-03-22 09:35] LABS: CALCIUM 7.6 mg/dL (8.5-10.1); CREATININE SERUM 3.18 mg/dL (0.55-1.02); GFR 14.47; POTASSIUM 3.64 mEq/L (3.5-5.1)
[2024-03-22] MEDS ORDERED: INSULIN NPH HUMAN ISOPHANE 1,000 UNITS/10 ML UNITS SUBCUTANEO SCH ×2 (21:00)
[2024-03-23 06:53] LABS: ALBUMIN 1.7 gm/dL (3.4-5.0); CALCIUM 7.9 mg/dL (8.5-10.1); CREATININE SERUM 3.4 mg/dL (0.55-1.02); GFR 13.39; PHOSPHOROUS 4.3 mg/dL (2.5-4.9); POTASSIUM 3.62 mEq/L (3.5-5.1)
[2024-03-23] MEDS ORDERED: INSULIN NPH HUMAN ISOPHANE 1,000 UNITS/10 ML UNITS SUBCUTANEO SCH (08:00)
[2024-03-23] MEDS ORDERED: ALTEPLASE 2 MG VIAL IJ ONE (14:00)
[2024-03-23] MEDS ORDERED: HEPARIN SODIUM,PORCINE 5,000 UNITS/ML VIAL IJ ONE (18:30)
[2024-03-26 11:09] LABS: CALCIUM 8.1 mg/dL (8.5-10.1); CREATININE SERUM 3.11 mg/dL (0.55-1.02); GFR 14.84; PHOSPHOROUS 5.5 mg/dL (2.5-4.9); POTASSIUM 4.48 mEq/L (3.5-5.1)
[2024-03-26] MEDS ORDERED: HEPARIN SODIUM,PORCINE 5,000 UNITS/ML VIAL IV NR (15:45)
[2024-03-26] MEDS ORDERED: INSULIN NPH HUMAN ISOPHANE 1,000 UNITS/10 ML UNITS SUBCUTANEO SCH (21:00)
[2024-03-27 05:36] LABS: CREATININE SERUM 2.39 mg/dL (0.55-1.02); GFR 20.11; POTASSIUM 3.51 mEq/L (3.5-5.1)
[2024-03-28 06:50] LABS: ALBUMIN 1.8 gm/dL (3.4-5.0); BILIRUBIN TOTAL 0.25 mg/dL (0.3-1.2); CALCIUM 7.9 mg/dL (8.5-10.1); CREATININE SERUM 2.63 mg/dL (0.55-1.02); GFR 18.01; GLOBULINA 2.8 G/DL (2.4-3.5); POTASSIUM 3.65 mEq/L (3.5-5.1); TOTAL PROTEIN 4.6 gm/dL (6.4-8.2)
[2024-03-29 06:55] LABS: ALBUMIN 1.8 gm/dL (3.4-5.0); BILIRUBIN TOTAL 0.39 mg/dL (0.3-1.2); CALCIUM 7.9 mg/dL (8.5-10.1); CREATININE SERUM 2.69 mg/dL (0.55-1.02); GFR 17.55; GLOBULINA 2.8 G/DL (2.4-3.5); POTASSIUM 3.92 mEq/L (3.5-5.1); TOTAL PROTEIN 4.6 gm/dL (6.4-8.2)
[2024-03-29] MEDS ORDERED: DEXTROSE 50 % IN WATER 0.5 G/ML DISP.SYRIN IV PRN (11:30)
[2024-03-29] MEDS ORDERED: HEPARIN SODIUM,PORCINE 5,000 UNITS/ML VIAL IJ ONE (16:15)
[2024-03-30] MEDS ORDERED: TUBERCULIN,PURIF.PROT.DERIV. 5 TU/0.1 ML VIAL ID NR (12:00)
[2024-03-30] MEDS ORDERED: HEPARIN SODIUM,PORCINE 5,000 UNITS/ML VIAL IV STA (15:18)
[2024-04-01] MEDS ORDERED: INSULIN NPH HUMAN ISOPHANE 1,000 UNITS/10 ML UNITS SUBCUTANEO SCH ×2 (08:00→21:00)
[2024-04-02 06:39] LABS: HEMATOCRIT 24.7 % (36.0-45.00); MEAN CELL VOLUME 89.5 fL (80.00-100.00); MEAN CORPUSCULAR HGB CONC 34.1 g/dl (32.0-36.0); PLATELET COUNT 249 K/uL (150-450); RED BLOOD COUNT 2.76 M/uL (4.00-6.00); RED CELL DISTRIBUTION WIDTH 14.7 % (11.5-14.5)
[2024-04-02 06:40] LABS: MEAN CORPUSCULAR HEMOGLOBIN 30.4 pg (27.00-32.0)
[2024-04-02 06:41] LABS: HEMOGLOBIN 8.4 g/dL (12.0-15.00)
[2024-04-02 06:53] LABS: BILIRUBIN TOTAL 0.32 mg/dL (0.3-1.2); CALCIUM 8.3 mg/dL (8.5-10.1); CREATININE SERUM 2.08 mg/dL (0.55-1.02); GFR 23.61; POTASSIUM 3.47 mEq/L (3.5-5.1)
[2024-04-03] MEDS ORDERED: HEPARIN SODIUM,PORCINE 1,000 UNITS/ML VIAL IJ ONE (01:15)
[2024-04-03] MEDS ORDERED: LIDOCAINE HCL 1%/EPINEPHRINE 20ML VIAL IJ ONE (01:15)
[2024-04-03 06:14] LABS: HEMATOCRIT 25.5 % (36.0-45.00); MEAN CELL VOLUME 94.6 fL (80.00-100.00); MEAN CORPUSCULAR HEMOGLOBIN 30.8 pg (27.00-32.0); MEAN CORPUSCULAR HGB CONC 32.6 g/dl (32.0-36.0); PLATELET COUNT 232 K/uL (150-450); RED BLOOD COUNT 2.69 M/uL (4.00-6.00); RED CELL DISTRIBUTION WIDTH 15.7 % (11.5-14.5)
[2024-04-03 06:15] LABS: HEMOGLOBIN 8.3 g/dL (12.0-15.00)
[2024-04-03 11:12] LABS: hav igm Negative (Negative); hcv Non Reactive (Non Reactive); hep b c Negative (Negative)
[2024-04-03] MEDS ORDERED: INSULIN REGULAR, HUMAN 1,000 UNIT/10 ML UNITS IV STA ×2 (12:24→14:54)
[2024-04-03] MEDS ORDERED: INSULIN REGULAR, HUMAN 1,000 UNIT/10 ML UNITS ONE (13:59)
[2024-04-03] MEDS ORDERED: HEPARIN SODIUM,PORCINE 5,000 UNITS/ML VIAL IV ONE (14:45)
[2024-04-03] MEDS ORDERED: INSULIN NPH HUMAN ISOPHANE 1,000 UNITS/10 ML UNITS SUBCUTANEO SCH (21:00)
[2024-04-04] MEDS ORDERED: HEPARIN SODIUM,PORCINE 5,000 UNITS/ML VIAL IV NR (16:15)
[2024-04-04] MEDS ORDERED: EPINEPHRINE HCL/PF 1 MG/ML AMPUL IV PUSH ONE (20:00)
[2024-04-04 21:04] LABS: ABG PH 7.334 (7.35-7.45); ABG PO2 83.7 mmHg (80-100); ABG pCO2 48.4 mmHg (35-45); BASE EXCESS -1.2 mmol/l; BICARBONATE 25.2 mmol/l (23-25); SaO2 95.3 %; Tco2 26.7 mmol/l
[2024-04-04 21:05] LABS: allen test SATISFACTORY; o2 60 %; puncture site RADIAL LEFT
[2024-04-04] MEDS ORDERED: METOPROLOL TARTRATE 5MG/5ML AMPUL IV PRN (21:15)
[2024-04-04] MEDS ORDERED: PROPOFOL 10,000 MCG/ML VIAL IV SCH (21:45)
[2024-04-04 23:47] LABS: ALBUMIN 1.7 gm/dL (3.4-5.0); BILIRUBIN TOTAL 0.53 mg/dL (0.3-1.2); CALCIUM 8.1 mg/dL (8.5-10.1); CKMB 3.3 NG/ML (0.5-3.6); CREATININE SERUM 1.65 mg/dL (0.55-1.02); GFR 30.84; GLOBULINA 3.4 G/DL (2.4-3.5); POTASSIUM 3.07 mEq/L (3.5-5.1); TOTAL PROTEIN 5.1 gm/dL (6.4-8.2)
[2024-04-05] MEDS ORDERED: CHLORHEXIDINE GLUCONATE 15ML BRUSH KIT MM SCH (01:00)
[2024-04-05 06:34] LABS: HEMATOCRIT 24.5 % (36.0-45.00); MEAN CELL VOLUME 87.6 fL (80.00-100.00); MEAN CORPUSCULAR HGB CONC 35.1 g/dl (32.0-36.0); PLATELET COUNT 216 K/uL (150-450); RED CELL DISTRIBUTION WIDTH 14.7 % (11.5-14.5)
[2024-04-05 06:48] LABS: HEMOGLOBIN 8.6 g/dL (12.0-15.00); MEAN CORPUSCULAR HEMOGLOBIN 30.7 pg (27.00-32.0)
[2024-04-05 07:18] LABS: ALBUMIN 1.7 gm/dL (3.4-5.0); CALCIUM 7.9 mg/dL (8.5-10.1); CREATININE SERUM 1.83 mg/dL (0.55-1.02); GFR 27.37; MAGNESIUM 1.7 mg/dL (1.8-2.4); POTASSIUM 3.27 mEq/L (3.5-5.1)
[2024-04-05 07:34] LABS: PHOSPHOROUS 1.6 mg/dL (2.5-4.9)
[2024-04-05] MEDS ORDERED: DEXTROSE 50 % IN WATER 0.5 G/ML DISP.SYRIN IV ONE ×2 (07:45→12:11)
[2024-04-05] MEDS ORDERED: SILVER SULFADIAZINE 50 GM JAR TOP ONE ×2 (07:52→16:49)
[2024-04-05] MEDS ORDERED: POTASSIUM PHOS,M-BASIC-D-BASIC 3 MM/ML VIAL IV NR (08:45)
[2024-04-05 08:46] LABS: ABG PO2 89.5 mmHg (80-100); ABG pCO2 33.7 mmHg (35-45)
[2024-04-05 08:47] LABS: BASE EXCESS 2.4 mmol/l; BICARBONATE 25.2 mmol/l (23-25); SaO2 97.7 %; Tco2 26.2 mmol/l
[2024-04-05 08:48] LABS: allen test SATISFACTORY; o2 100 %; puncture site RADIAL RIGHT
[2024-04-05] MEDS ORDERED: POLYVINYL ALCOHOL 15 ML DROPS OP SCH (09:00)
[2024-04-05] MEDS ORDERED: CHLORHEXIDINE GLUCONATE 120 ML BOTTLE TOP ONE (09:14)
[2024-04-05] MEDS ORDERED: MAGNESIUM SULFATE IN WATER 50 ML IV NR (11:00)
[2024-04-05] MEDS ORDERED: POTASSIUM CHLORIDE IN WATER 100 ML IV NR (17:00)
[2024-04-06] MEDS ORDERED: ALBUMIN HUMAN 100 ML VIAL IV NR (07:00)
[2024-04-06 07:04] LABS: HEMATOCRIT 27.7 % (36.0-45.00); HEMOGLOBIN 9.5 g/dL (12.0-15.00); MEAN CELL VOLUME 87.8 fL (80.00-100.00); MEAN CORPUSCULAR HEMOGLOBIN 30.1 pg (27.00-32.0); MEAN CORPUSCULAR HGB CONC 34.3 g/dl (32.0-36.0); PLATELET COUNT 190 K/uL (150-450); RED BLOOD COUNT 3.15 M/uL (4.00-6.00); RED CELL DISTRIBUTION WIDTH 14.9 % (11.5-14.5)
[2024-04-06 07:19] LABS: ALBUMIN 1.8 gm/dL (3.4-5.0); BILIRUBIN TOTAL 1.45 mg/dL (0.3-1.2); CALCIUM 7.7 mg/dL (8.5-10.1); CKMB 1.4 NG/ML (0.5-3.6); CREATININE SERUM 2.33 mg/dL (0.55-1.02); GFR 20.71; GLOBULINA 3.1 G/DL (2.4-3.5); POTASSIUM 4.13 mEq/L (3.5-5.1); TOTAL PROTEIN 4.9 gm/dL (6.4-8.2)
[2024-04-06 08:03] LABS: ABG PH 7.477 (7.35-7.45); ABG PO2 320.8 mmHg (80-100); ABG pCO2 27.9 mmHg (35-45); BASE EXCESS -1.9 mmol/l; BICARBONATE 20.2 mmol/l (23-25); SaO2 99.9 %
[2024-04-06] MEDS ORDERED: SILVER SULFADIAZINE 50 GM JAR TOP ONE (08:15)
[2024-04-06] MEDS ORDERED: ENOXAPARIN SODIUM 80 MG/0.8 ML SYRINGE SUBCUTANEO SCH (09:00)
[2024-04-06 09:56] LABS: allen test SATISFACTORY; puncture site RADIAL RIGHT
[2024-04-06 09:57] LABS: o2 100 %
[2024-04-06] MEDS ORDERED: NOREPINEPHRINE BITARTRATE 1 MG/ML AMPUL IV ONE (10:12)
[2024-04-06] MEDS ORDERED: NOREPINEPHRINE BITARTRATE 8 MG in DEXTROSE 5 % IN WATER 250 ML IV SCH (10:15)
[2024-04-06] MEDS ORDERED: ALBUMIN HUMAN 100 ML VIAL IV SCH (12:00)
[2024-04-06] MEDS ORDERED: HEPARIN SODIUM,PORCINE 5,000 UNITS/ML VIAL ONE (16:42)
[2024-04-06] MEDS ORDERED: FLUCONAZOLE IN NACL,ISO-OSM 200 MG/100 ML PIGGYBAG IV NR (17:00)
[2024-04-06] MEDS ORDERED: MEROPENEM 500 MG/VIAL VIAL IV SCH (21:00)
[2024-04-06 23:30] LABS: HEMATOCRIT 26.9 % (36.0-45.00); HEMOGLOBIN 9.1 g/dL (12.0-15.00); MEAN CELL VOLUME 89.3 fL (80.00-100.00); MEAN CORPUSCULAR HEMOGLOBIN 30.1 pg (27.00-32.0); MEAN CORPUSCULAR HGB CONC 33.7 g/dl (32.0-36.0); PLATELET COUNT 146 K/uL (150-450); RED BLOOD COUNT 3.01 M/uL (4.00-6.00); RED CELL DISTRIBUTION WIDTH 15.1 % (11.5-14.5)
[2024-04-07] MEDS ORDERED: INSULIN NPH HUMAN ISOPHANE 1,000 UNITS/10 ML UNITS SUBCUTANEO STA (10:19)
[2024-04-07 10:41] LABS: ABG PH 7.303 (7.35-7.45); ABG PO2 195.2 mmHg (80-100); ABG pCO2 23.5 mmHg (35-45); BASE EXCESS -12.8 mmol/l; BICARBONATE 11.4 mmol/l (23-25); SaO2 99.5 %; Tco2 12.1 mmol/l
[2024-04-07 10:58] LABS: allen test SATISFACTORY; o2 50 %; puncture site RADIAL RIGHT
[2024-04-07] MEDS ORDERED: FLUCONAZOLE IN NACL,ISO-OSM 50 ML IV SCH (12:00)
[2024-04-07] MEDS ORDERED: SILVER SULFADIAZINE 50 GM JAR TOP ONE (15:13)
[2024-04-07] MEDS ORDERED: FLUCONAZOLE IN NACL,ISO-OSM 2 MG/ML ML IV SCH (17:00)
[2024-04-07] MEDS ORDERED: HEPARIN SODIUM,PORCINE 5,000 UNITS/ML VIAL ONE (22:17)
[2024-04-08] MEDS ORDERED: INSULIN NPH HUMAN ISOPHANE 1,000 UNITS/10 ML UNITS SUBCUTANEO SCH (09:00)
[2024-04-08 09:34] LABS: ABG PH 7.435 (7.35-7.45); ABG PO2 190.4 mmHg (80-100); ABG pCO2 26.1 mmHg (35-45); BASE EXCESS -5.2 mmol/l; BICARBONATE 17.1 mmol/l (23-25); SaO2 99.7 %; Tco2 17.9 mmol/l; allen test SATISFACTORY; o2 50 %; puncture site RADIAL RIGHT
[2024-04-09 05:35] LABS: HEMATOCRIT 27.4 % (36.0-45.00); HEMOGLOBIN 9.4 g/dL (12.0-15.00); MEAN CELL VOLUME 86.9 fL (80.00-100.00); MEAN CORPUSCULAR HEMOGLOBIN 29.7 pg (27.00-32.0); MEAN CORPUSCULAR HGB CONC 34.2 g/dl (32.0-36.0); PLATELET COUNT 184 K/uL (150-450); RED BLOOD COUNT 3.15 M/uL (4.00-6.00); RED CELL DISTRIBUTION WIDTH 15.8 % (11.5-14.5)
[2024-04-09 05:52] LABS: CREATININE SERUM 2.55 mg/dL (0.55-1.02); GFR 18.66; POTASSIUM 3.14 mEq/L (3.5-5.1)
[2024-04-09] MEDS ORDERED: POTASSIUM CHLORIDE IN WATER 100 ML IV NR (08:01)
[2024-04-09] MEDS ORDERED: INSULIN NPH HUMAN ISOPHANE 1,000 UNITS/10 ML UNITS SUBCUTANEO SCH (09:00)
[2024-04-09] MEDS ORDERED: ENOXAPARIN SODIUM 30 MG/0.3 ML SYRINGE SUBCUTANEO SCH (09:00)
[2024-04-09 09:05] LABS: BB 0 % (0); MM 100 % (97-100); c mb 0 % (0-3); macro t 0 % (Not Observed); macro tyoe 2 0 % (Not Observed); total ck 43 U/L (32-182)
[2024-04-09 19:59] LABS: PLEURAL FLUID APPEARANCE HAZY; PLEURAL FLUID COLOR YELLOW
[2024-04-09 20:00] LABS: MONONUCLEAR 34 %; POLYMORPHONUCLEAR 66 %
[2024-04-10] MEDS ORDERED: INSULIN NPH HUMAN ISOPHANE 1,000 UNITS/10 ML UNITS SUBCUTANEO SCH (09:00)
[2024-04-10] MEDS ORDERED: HEPARIN SODIUM,PORCINE 5,000 UNITS/ML VIAL ONE (16:15)
[2024-04-10] MEDS ORDERED: SILVER SULFADIAZINE 50 GM JAR TOP ONE (16:26)
[2024-04-10 19:20] LABS: HEMATOCRIT 29.9 % (36.0-45.00); HEMOGLOBIN 10.1 g/dL (12.0-15.00); MEAN CELL VOLUME 87.9 fL (80.00-100.00); MEAN CORPUSCULAR HEMOGLOBIN 29.8 pg (27.00-32.0); MEAN CORPUSCULAR HGB CONC 33.9 g/dl (32.0-36.0); PLATELET COUNT 200 K/uL (150-450); RED CELL DISTRIBUTION WIDTH 15.4 % (11.5-14.5)
[2024-04-10 19:57] LABS: ALBUMIN 2.1 gm/dL (3.4-5.0); BILIRUBIN TOTAL 0.64 mg/dL (0.3-1.2); CALCIUM 8.4 mg/dL (8.5-10.1); CREATININE SERUM 1.83 mg/dL (0.55-1.02); GFR 27.37; GLOBULINA 3.1 G/DL (2.4-3.5); POTASSIUM 3.17 mEq/L (3.5-5.1); TOTAL PROTEIN 5.2 gm/dL (6.4-8.2)
[2024-04-11 09:54] LABS: CALCIUM 8.1 mg/dL (8.5-10.1); GFR 24.7; PHOSPHOROUS 2.3 mg/dL (2.5-4.9); POTASSIUM 4.06 mEq/L (3.5-5.1)
[2024-04-11] MEDS ORDERED: BISMUTH SUBSALICYLATE 524 MG/30 ML BLIST.PACK PO PRN (12:45)
[2024-04-12] MEDS ORDERED: HEPARIN SODIUM,PORCINE 5,000 UNITS/ML VIAL IV NR (14:45)
[2024-04-12] MEDS ORDERED: INSULIN NPH HUMAN ISOPHANE 1,000 UNITS/10 ML UNITS SUBCUTANEO SCH (21:00)
[2024-04-13 05:34] LABS: HEMATOCRIT 30.2 % (36.0-45.00); HEMOGLOBIN 10.4 g/dL (12.0-15.00); MEAN CORPUSCULAR HGB CONC 34.5 g/dl (32.0-36.0); PLATELET COUNT 243 K/uL (150-450); RED BLOOD COUNT 3.47 M/uL (4.00-6.00); RED CELL DISTRIBUTION WIDTH 15.2 % (11.5-14.5)
[2024-04-13 08:17] LABS: HEMATOCRIT 28.9 % (36.0-45.00); HEMOGLOBIN 9.7 g/dL (12.0-15.00); MEAN CELL VOLUME 87.5 fL (80.00-100.00); MEAN CORPUSCULAR HEMOGLOBIN 29.4 pg (27.00-32.0); MEAN CORPUSCULAR HGB CONC 33.7 g/dl (32.0-36.0); PLATELET COUNT 247 K/uL (150-450); RED CELL DISTRIBUTION WIDTH 15.5 % (11.5-14.5)
[2024-04-13 08:42] LABS: CREATININE SERUM 1.87 mg/dL (0.55-1.02); GFR 26.7; PHOSPHOROUS 2.5 mg/dL (2.5-4.9); POTASSIUM 3.63 mEq/L (3.5-5.1)
[2024-04-13] MEDS ORDERED: INSULIN NPH HUMAN ISOPHANE 1,000 UNITS/10 ML UNITS SUBCUTANEO SCH (09:00)
[2024-04-13 09:26] LABS: ABG PH 7.395 (7.35-7.45); ABG PO2 64.3 mmHg (80-100); ABG pCO2 39.1 mmHg (35-45); BASE EXCESS -1.2 mmol/l; BICARBONATE 23.4 mmol/l (23-25); Tco2 24.6 mmol/l
[2024-04-13 09:27] LABS: allen test SATISFACTORY; o2 21 %; puncture site RADIAL RIGHT
[2024-04-13] MEDS ORDERED: LOPERAMIDE HCL 2 MG CAPSULE PO PRN (13:45)
[2024-04-14] MEDS ORDERED: HEPARIN SODIUM,PORCINE 5,000 UNITS/ML VIAL IV NR (15:00)
[2024-04-16 08:56] LABS: HEMATOCRIT 28.1 % (36.0-45.00); HEMOGLOBIN 9.4 g/dL (12.0-15.00); MEAN CELL VOLUME 87.8 fL (80.00-100.00); MEAN CORPUSCULAR HEMOGLOBIN 29.5 pg (27.00-32.0); MEAN CORPUSCULAR HGB CONC 33.6 g/dl (32.0-36.0); PLATELET COUNT 271 K/uL (150-450); RED BLOOD COUNT 3.21 M/uL (4.00-6.00); RED CELL DISTRIBUTION WIDTH 15.3 % (11.5-14.5)
[2024-04-16 09:29] LABS: ALBUMIN 1.9 gm/dL (3.4-5.0); BILIRUBIN TOTAL 0.53 mg/dL (0.3-1.2); CALCIUM 7.9 mg/dL (8.5-10.1); CREATININE SERUM 1.66 mg/dL (0.55-1.02); GFR 30.63; GLOBULINA 2.9 G/DL (2.4-3.5); POTASSIUM 3.76 mEq/L (3.5-5.1); TOTAL PROTEIN 4.8 gm/dL (6.4-8.2)
[2024-04-16] MEDS ORDERED: LACTOBACILLUS ACIDOPHILUS 1 CAP CAP PO SCH (13:00)
[2024-04-16] MEDS ORDERED: HEPARIN SODIUM,PORCINE 5,000 UNITS/ML VIAL IV STA (16:04)
[2024-04-17] MEDS ORDERED: PANTOPRAZOLE SODIUM 40 MG TABLET.DR PO SCH (09:00)
[2024-04-17] MEDS ORDERED: INSULIN REGULAR, HUMAN 1,000 UNIT/10 ML UNITS IV STA (14:38)
[2024-04-17] MEDS ORDERED: INSULIN NPH HUMAN ISOPHANE 1,000 UNITS/10 ML UNITS SUBCUTANEO SCH (21:00)
[2024-04-18] MEDS ORDERED: INSULIN NPH HUMAN ISOPHANE 1,000 UNITS/10 ML UNITS SUBCUTANEO SCH ×2 (09:00→21:00)
[2024-04-18] MEDS ORDERED: HEPARIN SODIUM,PORCINE 5,000 UNITS/ML VIAL IV NR (14:45)
== END 2024-04-19 21:18 | disposition home or self-care (01) | DRG 871 ==
LOC: ER 11:25 → ICU-2 18:00 → MEDI 18:00 → ICU 03-16 20:31 → MEDI 03-25 11:18 → ICU 03-25 12:02 → MEDI 03-25 14:39 → ICU 04-04 20:12 → MEDJ 04-10 21:04
PROVIDERS: General Practice; Internal Medicine; Internal Medicine Critical Care Medicine; Internal Medicine Endocrinology, Diabetes & Metabolism; Internal Medicine Infectious Disease; Internal Medicine Nephrology; Radiology Vascular & Interventional Radiology; Specialist/Technologist, Other Nephrology; ADMIT Internal Medicine; ATTEND Internal Medicine
PROC: 5A1945Z Respiratory Ventilation, 24-96 Consecutive Hours (ICD-10-PCS; principal; 2024-03-14)
PROC: 0BH17EZ Insertion of Endotracheal Airway into Trachea, Via Natural or Artificial Opening (ICD-10-PCS; 2024-03-14)
PROC: 4A12X45 Monitoring of Cardiac Electrical Activity, Ambulatory, External Approach (ICD-10-PCS; 2024-03-14)
PROC: B020ZZZ Computerized Tomography (CT Scan) of Brain (ICD-10-PCS; 2024-03-14)
PROC: B246ZZZ Ultrasonography of Right and Left Heart (ICD-10-PCS; 2024-03-14)
PROC: 0DH67UZ Insertion of Feeding Device into Stomach, Via Natural or Artificial Opening (ICD-10-PCS; 2024-03-14)
PROC: 02HV33Z Insertion of Infusion Device into Superior Vena Cava, Percutaneous Approach (ICD-10-PCS; 2024-03-15)
PROC: 30233N1 Transfusion of Nonautologous Red Blood Cells into Peripheral Vein, Percutaneous Approach (ICD-10-PCS; 2024-03-16)
PROC: 0BP1XDZ Removal of Intraluminal Device from Trachea, External Approach (ICD-10-PCS; 2024-03-18)
PROC: 5A1D70Z Performance of Urinary Filtration, Intermittent, Less than 6 Hours Per Day (ICD-10-PCS; 2024-03-19)
PROC: 06HY33Z Insertion of Infusion Device into Lower Vein, Percutaneous Approach (ICD-10-PCS; 2024-03-19)
PROC: 5A1D70Z Performance of Urinary Filtration, Intermittent, Less than 6 Hours Per Day (ICD-10-PCS; 2024-03-21)
PROC: 5A1D70Z Performance of Urinary Filtration, Intermittent, Less than 6 Hours Per Day (ICD-10-PCS; 2024-03-23)
PROC: 5A1D70Z Performance of Urinary Filtration, Intermittent, Less than 6 Hours Per Day (ICD-10-PCS; 2024-03-26)
PROC: 5A1D70Z Performance of Urinary Filtration, Intermittent, Less than 6 Hours Per Day (ICD-10-PCS; 2024-03-29)
PROC: B54PZZZ Ultrasonography of Bilateral Upper Extremity Veins (ICD-10-PCS; 2024-03-30)
PROC: 5A1D70Z Performance of Urinary Filtration, Intermittent, Less than 6 Hours Per Day (ICD-10-PCS; 2024-03-30)
PROC: 06PYX3Z Removal of Infusion Device from Lower Vein, External Approach (ICD-10-PCS; 2024-04-02)
PROC: 05HM33Z Insertion of Infusion Device into Right Internal Jugular Vein, Percutaneous Approach (ICD-10-PCS; 2024-04-02)
PROC: B543ZZA Ultrasonography of Right Jugular Veins, Guidance (ICD-10-PCS; 2024-04-02)
PROC: 5A1D70Z Performance of Urinary Filtration, Intermittent, Less than 6 Hours Per Day (ICD-10-PCS; 2024-04-03)
PROC: B020ZZZ Computerized Tomography (CT Scan) of Brain (ICD-10-PCS; 2024-04-04)
PROC: B54DZZZ Ultrasonography of Bilateral Lower Extremity Veins (ICD-10-PCS; 2024-04-04)
PROC: 5A1D70Z Performance of Urinary Filtration, Intermittent, Less than 6 Hours Per Day (ICD-10-PCS; 2024-04-04)
PROC: B52 Imaging, Veins, Computerized Tomography (CT Scan) (ICD-10-PCS; 2024-04-05)
PROC: 5A1D70Z Performance of Urinary Filtration, Intermittent, Less than 6 Hours Per Day (ICD-10-PCS; 2024-04-06)
PROC: 5A1D70Z Performance of Urinary Filtration, Intermittent, Less than 6 Hours Per Day (ICD-10-PCS; 2024-04-07)
PROC: 0W9B3ZZ Drainage of Left Pleural Cavity, Percutaneous Approach (ICD-10-PCS; 2024-04-09)
PROC: 5A1D70Z Performance of Urinary Filtration, Intermittent, Less than 6 Hours Per Day (ICD-10-PCS; 2024-04-10)
PROC: 5A1D70Z Performance of Urinary Filtration, Intermittent, Less than 6 Hours Per Day (ICD-10-PCS; 2024-04-11)
PROC: 5A1D70Z Performance of Urinary Filtration, Intermittent, Less than 6 Hours Per Day (ICD-10-PCS; 2024-04-14)
PROC: 5A1D70Z Performance of Urinary Filtration, Intermittent, Less than 6 Hours Per Day (ICD-10-PCS; 2024-04-16)
PROC: 5A1D70Z Performance of Urinary Filtration, Intermittent, Less than 6 Hours Per Day (ICD-10-PCS; 2024-04-18)
DX: A41.59 Other Gram-negative sepsis (principal); E11.10 Type 2 diabetes mellitus with ketoacidosis without coma; I21.A1 Myocardial infarction type 2; R65.21 Severe sepsis with septic shock; G93.41 Metabolic encephalopathy; J96.00 Acute respiratory failure, unspecified whether with hypoxia or hypercapnia; I46.9 Cardiac arrest, cause unspecified; N18.6 End stage renal disease; J69.0 Pneumonitis due to inhalation of food and vomit; N39.0 Urinary tract infection, site not specified; N17.8 Other acute kidney failure; J91.8 Pleural effusion in other conditions classified elsewhere; I12.0 Hypertensive chronic kidney disease with stage 5 chronic kidney disease or end stage renal disease; B96.0 Mycoplasma pneumoniae [M. pneumoniae] as the cause of diseases classified elsewhere; E11.22 Type 2 diabetes mellitus with diabetic chronic kidney disease; D64.89 Other specified anemias; D63.1 Anemia in chronic kidney disease; E86.0 Dehydration; E11.65 Type 2 diabetes mellitus with hyperglycemia; E11.51 Type 2 diabetes mellitus with diabetic peripheral angiopathy without gangrene; E87.5 Hyperkalemia; R19.7 Diarrhea, unspecified; Z79.4 Long term (current) use of insulin; Z74.01 Bed confinement status; Z99.2 Dependence on renal dialysis
CPT/HCPCS: 71275

== ENCOUNTER 2024-10-19 15:15 | Inpatient (IN) | payer OTHER ==
[~2024-10-19] VITALS: Ht 167.6 cm; Wt 45.4 kg
[~2024-10-19 15:15] MED LIST changes: -SODIUM BICARBONATE 50MEQ/50ML VIAL IV ONE
[2024-10-19] MEDS ORDERED: INSULIN REGULAR, HUMAN 1,000 UNIT/10 ML UNITS IV ONE (16:45)
[2024-10-19] MEDS ORDERED: 0.9 % SODIUM CHLORIDE 1,000 ML IV SCH ×2 (16:45→20:00)
[2024-10-19 17:52] LABS: HEMATOCRIT 32.3 % (36.0-45.00); HEMOGLOBIN 10.4 g/dL (12.0-15.00); MEAN CELL VOLUME 91.3 fL (80.00-100.00); MEAN CORPUSCULAR HEMOGLOBIN 29.4 pg (27.00-32.0); MEAN CORPUSCULAR HGB CONC 32.1 g/dl (32.0-36.0); PLATELET COUNT 263 K/uL (150-450); RED BLOOD COUNT 3.54 M/uL (4.00-6.00); RED CELL DISTRIBUTION WIDTH 16.1 % (11.5-14.5)
[2024-10-19 18:23] LABS: ALBUMIN 2.3 gm/dL (3.4-5.0); BILIRUBIN TOTAL 0.62 mg/dL (0.3-1.2); CALCIUM 8.9 mg/dL (8.5-10.1); CREATININE SERUM 2.59 mg/dL (0.55-1.02); GFR 18.28; GLOBULINA 3.4 G/DL (2.4-3.5); POTASSIUM 5.15 mEq/L (3.5-5.1); TOTAL PROTEIN 5.7 gm/dL (6.4-8.2)
[2024-10-19] MEDS ORDERED: INSULIN REGULAR, HUMAN 1,000 UNIT/10 ML UNITS SUBCUTANEO ONE (18:30)
[2024-10-19] MEDS ORDERED: INSULIN REGULAR, HUMAN 100 UNITS in 0.9 % SODIUM CHLORIDE 100 ML IV SCH (20:00)
[2024-10-19] MEDS ORDERED: SODIUM BICARBONATE 1 MEQ/ML DISP.SYRIN 50ML IV ONE (20:00)
[2024-10-19] MEDS ORDERED: ONDANSETRON HCL 4 MG in 0.9 % SODIUM CHLORIDE 50 ML IV PRN (20:15)
[2024-10-20] VITALS (9 sets, daily range): BP systolic 110–120; BP diastolic 63–73; O2SAT 98–100
[2024-10-20] MEDS ORDERED: DEXTROSE 5 % IN WATER 100 ML IV SCH (05:00)
[2024-10-20 07:46] LABS: CALCIUM 8.9 mg/dL (8.5-10.1); MAGNESIUM 1.8 mg/dL (1.8-2.4)
[2024-10-20 07:56] LABS: ALBUMIN 2.2 gm/dL (3.4-5.0); BILIRUBIN TOTAL 0.53 mg/dL (0.3-1.2); CALCIUM 8.8 mg/dL (8.5-10.1); CREATININE SERUM 2.06 mg/dL (0.55-1.02); GFR 23.8; GLOBULINA 3.3 G/DL (2.4-3.5); PHOSPHOROUS 2.8 mg/dL (2.5-4.9); POTASSIUM 4.04 mEq/L (3.5-5.1); TOTAL PROTEIN 5.5 gm/dL (6.4-8.2)
[2024-10-20 09:34] LABS: ABG PO2 165.6 mmHg (80-100); ABG pCO2 43.2 mmHg (35-45); BASE EXCESS 3.3 mmol/l; SaO2 99.5 %; Tco2 29.4 mmol/l
[2024-10-20 11:22] LABS: o2 32 %
[2024-10-20 11:23] LABS: allen test SATISFACTORY; puncture site RADIAL LEFT
[2024-10-20] MEDS ORDERED: INSULIN NPH HUMAN ISOPHANE 1,000 UNITS/10 ML UNITS SUBCUTANEO STA (16:20)
[2024-10-20] MEDS ORDERED: INSULIN LISPRO 1,000 UNIT/10 ML UNITS SUBCUTANEO STA (16:20)
[2024-10-20] MEDS ORDERED: INSULIN GLARGINE,HUM.REC.ANLOG 1,000 UNITS/10 ML UNITS SUBCUTANEO SCH (21:00)
[2024-10-21] VITALS (9 sets, daily range): BP systolic 124–146; BP diastolic 74–85; O2SAT 98–100
[2024-10-21] MEDS ORDERED: DEXTROSE 50 % IN WATER 0.5 G/ML DISP.SYRIN IV ONE ×2 (05:34→07:33)
[2024-10-21] MEDS ORDERED: DEXTROSE 50 % IN WATER 0.5 G/ML VIAL IV ONE (06:15)
[2024-10-21] MEDS ORDERED: DEXTROSE 50 % IN WATER 0.5 G/ML DISP.SYRIN IV PRN (14:00)
[2024-10-21] MEDS ORDERED: INSULIN LISPRO 1,000 UNIT/10 ML UNITS SUBCUTANEO PRN (14:00)
[2024-10-22] VITALS (7 sets, daily range): BP systolic 119–120; BP diastolic 74–75; O2SAT 98–100
[2024-10-22 07:16] LABS: CALCIUM 8.3 mg/dL (8.5-10.1); CREATININE SERUM 1.89 mg/dL (0.55-1.02); GFR 26.29; POTASSIUM 4.56 mEq/L (3.5-5.1)
[2024-10-22] MEDS ORDERED: INSULIN NPH HUM/REG INSULIN HM 1,000 UNIT/10 ML UNITS SUBCUTANEO SCH (08:00)
[2024-10-22] MEDS ORDERED: HEPARIN SODIUM,PORCINE 5,000 UNITS/ML VIAL ONE (16:09)
[2024-10-22] MEDS ORDERED: INSULIN NPH HUMAN ISOPHANE 1,000 UNITS/10 ML UNITS SUBCUTANEO SCH (21:00)
[2024-10-23] VITALS (9 sets, daily range): BP systolic 104–132; BP diastolic 68–81; O2SAT 97–100
[2024-10-23] MEDS ORDERED: FAMOtidine 20 MG TABLET PO SCH (09:00)
[2024-10-23] MEDS ORDERED: NYSTATIN 30 GM,SILVER SULFADIAZINE 50 GM,ZINC OXIDE 30 GM TOP SCH (11:03)
[2024-10-24] VITALS (9 sets, daily range): BP systolic 147–160; BP diastolic 77–86; O2SAT 97–100
[2024-10-24] MEDS ORDERED: HEPARIN SODIUM,PORCINE 5,000 UNITS/ML VIAL ONE (15:48)
[2024-10-24] MEDS ORDERED: HEPARIN SODIUM,PORCINE 5,000 UNITS/ML VIAL IV NR (16:00)
[2024-10-25 01:08] VITALS: O2SAT 98
[2024-10-25 02:08] VITALS: BP 110/73
[2024-10-25 06:14] VITALS: O2SAT 90
[2024-10-25 09:27] VITALS: BP 103/68
[2024-10-25] MEDS ORDERED: FAMOTIDINE20 MG PO (09:40)
[2024-10-25] MEDS ORDERED: HUMULIN 70100 UNIT/2 SUBCUTANEO (09:41)
[2024-10-25] MEDS ORDERED: INSULIN LI100 UNIT/1 SUBCUTANEO (09:41)
== END 2024-10-25 14:58 | disposition home or self-care (01) | DRG 637 ==
LOC: ER 15:15 → MEDI 21:08 → MEDJ 10-21 15:16
PROVIDERS: General Practice; Internal Medicine Endocrinology, Diabetes & Metabolism; ADMIT Internal Medicine; ATTEND Internal Medicine
PROC: 4A12X4Z Monitoring of Cardiac Electrical Activity, External Approach (ICD-10-PCS; 2024-10-20)
PROC: 5A1D70Z Performance of Urinary Filtration, Intermittent, Less than 6 Hours Per Day (ICD-10-PCS; 2024-10-22)
PROC: 5A1D70Z Performance of Urinary Filtration, Intermittent, Less than 6 Hours Per Day (ICD-10-PCS; principal; 2024-10-24)
DX: E11.65 Type 2 diabetes mellitus with hyperglycemia (principal); E11.10 Type 2 diabetes mellitus with ketoacidosis without coma; N18.6 End stage renal disease; N17.9 Acute kidney failure, unspecified; I12.0 Hypertensive chronic kidney disease with stage 5 chronic kidney disease or end stage renal disease; E11.22 Type 2 diabetes mellitus with diabetic chronic kidney disease; E87.5 Hyperkalemia; D63.1 Anemia in chronic kidney disease; Z99.2 Dependence on renal dialysis; Z79.4 Long term (current) use of insulin

== ENCOUNTER 2024-11-07 13:47 | Inpatient (IN) | payer OTHER ==
[~2024-11-07] VITALS: Ht 152.4 cm; Wt 45.4 kg
[~2024-11-07 13:47] MED LIST changes: +HUMULIN 70100 UNIT/2 SUBCUTANEO; +INSULIN LI100 UNIT/1 SUBCUTANEO
[2024-11-07] MEDS ORDERED: HUMULIN 70100 UNIT/2 (14:01)
[2024-11-07] MEDS ORDERED: PROTONIX40 MG (14:01)
[2024-11-07] MEDS ORDERED: ATORVASTATIN CA20 MG (14:58)
[2024-11-07] MEDS ORDERED: NORVASC10 MG (14:58)
[2024-11-07] MEDS ORDERED: PRE PROTEIN1 EACH (14:59)
[2024-11-07] MEDS ORDERED: HYDROCHLOROTH12.5 M2 (14:59)
[2024-11-07] MEDS ORDERED: 0.9 % SODIUM CHLORIDE 1,000 ML IV SCH (15:15)
[2024-11-07] MEDS ORDERED: INSULIN REGULAR, HUMAN 1,000 UNIT/10 ML UNITS IV ONE (15:15)
[2024-11-07 15:51] LABS: HEMATOCRIT 28.6 % (36.0-45.00); MEAN CELL VOLUME 95.9 fL (80.00-100.00); PLATELET COUNT 217 K/uL (150-450); RED BLOOD COUNT 2.98 M/uL (4.00-6.00); RED CELL DISTRIBUTION WIDTH 18.9 % (11.5-14.5)
[2024-11-07 15:52] LABS: HEMOGLOBIN 8.8 g/dL (12.0-15.00); MEAN CORPUSCULAR HEMOGLOBIN 29.5 pg (27.00-32.0)
[2024-11-07 16:13] LABS: INR 1.06; PARTIAL THROMBOPLASTIN TIME 26.4 SECONDS (22.0-34.0); PROTHROMBIN TIME 11.5 SECONDS (9.0-11.5)
[2024-11-07 16:15] LABS: BILIRUBIN,CONJUGATED 0.25 mg/dL (0.0-0.2); BILIRUBIN,UNCONJUGATED 0.75 mg/dL (0.0-0.6); CALCIUM 8.1 mg/dL (8.5-10.1); CREATININE SERUM 2.25 mg/dL (0.55-1.02); GFR 21.5; GLOBULINA 3.5 G/DL (2.4-3.5); POTASSIUM 3.47 mEq/L (3.5-5.1); TOTAL PROTEIN 5.5 gm/dL (6.4-8.2)
[2024-11-07] MEDS ORDERED: CEFTRIAXONE SODIUM 2,000 MG in 0.9 % SODIUM CHLORIDE 100 ML IV SCH (20:25)
[2024-11-07] MEDS ORDERED: ACETAMINOPHEN 500 MG GEL..CAP PO PRN (20:30)
[2024-11-07 21:06] LABS: ABG PH 7.382 (7.35-7.45); ABG PO2 94.3 mmHg (80-100); ABG pCO2 29.3 mmHg (35-45); BASE EXCESS -6.5 mmol/l; BICARBONATE 17.1 mmol/l (23-25)
[2024-11-07 21:07] LABS: mode ROOM AIR; o2 21 %; puncture site BRADIAL RIGHT
[2024-11-07] MEDS ORDERED: SODIUM CHLORIDE 0.45 % 1,000 ML IV SCH (21:15)
[2024-11-07] MEDS ORDERED: DEXTROSE 50 % IN WATER 0.5 G/ML DISP.SYRIN IV PRN (21:30)
[2024-11-07] MEDS ORDERED: INSULIN LISPRO 1,000 UNIT/10 ML UNITS SUBCUTANEO PRN (21:30)
[2024-11-07] MEDS ORDERED: CEFTRIAXONE SODIUM 2,000 MG VIAL ONE (23:36)
[2024-11-08] VITALS (9 sets, daily range): BP systolic 92–125; BP diastolic 39–80; O2SAT 96–100
[2024-11-08] MEDS ORDERED: INSULIN REGULAR, HUMAN 100 UNITS in 0.9 % SODIUM CHLORIDE 100 ML IV SCH (00:15)
[2024-11-08] MEDS ORDERED: POTASSIUM CHLORIDE/NACL 0.9% 1,000 ML IV ONE (00:15)
[2024-11-08] MEDS ORDERED: INSULIN REGULAR, HUMAN 1,000 UNIT/10 ML UNITS IV ONE (00:30)
[2024-11-08 01:59] LABS: MAGNESIUM 2.2 mg/dL (1.8-2.4); PHOSPHOROUS 3.3 mg/dL (2.5-4.9)
[2024-11-08 02:01] LABS: CALCIUM 8.6 mg/dL (8.5-10.1); CREATININE SERUM 2.39 mg/dL (0.55-1.02); GFR 20.05; POTASSIUM 3.47 mEq/L (3.5-5.1)
[2024-11-08 02:18] LABS: URINE APPEARANCE Turbid; URINE BILIRRUBIN Negative (NEGATIVE); URINE BLOOD Large; URINE COLOR Yellow; URINE LEUKOCYTE Large; URINE NITRATE Negative; URINE UROBILINOGEN 0.2 E.U./dl
[2024-11-08 02:22] LABS: URINE CAST 17.77 uL (0.0-1.40); URINE EPITHELIAL CELLS 122.7 uL (0.0-38.8)
[2024-11-08 04:52] LABS: INR 1.38; PROTHROMBIN TIME 14.7 SECONDS (9.0-11.5)
[2024-11-08 04:53] LABS: URINE GLUCOSE 500 MG/DL (NEGATIVE); URINE KETONE 40 (NEGATIVE); URINE PROTEIN 100 (NEGATIVE); URINE RBC > 10558.9 uL (0.0-20.8); URINE WBC > 5548.3 uL (0.0-23.2)
[2024-11-08 04:55] LABS: URINE BACTERIA > 9821.5 uL (0.0-1933); URINE MUCUS HEAVY; URINE YEAST MANY /hpf
[2024-11-08 04:56] LABS: PARTIAL THROMBOPLASTIN TIME 41.9 SECONDS (22.0-34.0)
[2024-11-08] MEDS ORDERED: ATORVASTATIN CALCIUM 20 MG TABLET PO SCH (09:00)
[2024-11-08] MEDS ORDERED: PANTOPRAZOLE SODIUM 40 MG/VIAL VIAL IV SCH (09:00)
[2024-11-08] MEDS ORDERED: ENOXAPARIN SODIUM 30 MG/0.3 ML SYRINGE SUBCUTANEO SCH (09:00)
[2024-11-08 15:45] LABS: INFLUENZA A AG NEGATIVE (NEGATIVE)
[2024-11-08 19:26] LABS: CALCIUM 8.3 mg/dL (8.5-10.1); CREATININE SERUM 2.46 mg/dL (0.55-1.02); GFR 19.4
[2024-11-08 19:46] LABS: POTASSIUM 2.89 mEq/L (3.5-5.1)
[2024-11-08] MEDS ORDERED: DEXTROSE 50 % IN WATER 0.5 G/ML DISP.SYRIN IV PRN (20:45)
[2024-11-08] MEDS ORDERED: INSULIN LISPRO 1,000 UNIT/10 ML UNITS SUBCUTANEO PRN (20:45)
[2024-11-08] MEDS ORDERED: INSULIN NPH HUM/REG INSULIN HM 1,000 UNIT/10 ML UNITS SUBCUTANEO SCH (21:38)
[2024-11-09] VITALS (16 sets, daily range): BP systolic 82–179; BP diastolic 50–100; O2SAT 96–100
[2024-11-09] MEDS ORDERED: INSULIN LISPRO 1,000 UNIT/10 ML UNITS SUBCUTANEO ONE ×2 (00:57→14:30)
[2024-11-09 06:54] LABS: HEMATOCRIT 26.5 % (36.0-45.00); MEAN CELL VOLUME 89.9 fL (80.00-100.00); MEAN CORPUSCULAR HGB CONC 32.9 g/dl (32.0-36.0); PLATELET COUNT 216 K/uL (150-450); RED BLOOD COUNT 2.95 M/uL (4.00-6.00)
[2024-11-09 07:02] LABS: ALBUMIN 1.9 gm/dL (3.4-5.0); BILIRUBIN TOTAL 0.48 mg/dL (0.3-1.2); CREATININE SERUM 2.26 mg/dL (0.55-1.02); GFR 21.39; GLOBULINA 3.3 G/DL (2.4-3.5); MAGNESIUM 1.9 mg/dL (1.8-2.4); PHOSPHOROUS 2.4 mg/dL (2.5-4.9); POTASSIUM 4.15 mEq/L (3.5-5.1); TOTAL PROTEIN 5.2 gm/dL (6.4-8.2)
[2024-11-09 07:04] LABS: C-REACTIVE PROTEIN 2.38 MG/DL (0.00-0.29); MEAN CORPUSCULAR HEMOGLOBIN 29.4 pg (27.00-32.0)
[2024-11-09 07:05] LABS: HEMOGLOBIN 8.7 g/dL (12.0-15.00)
[2024-11-09 08:33] LABS: URINE APPEARANCE Turbid; URINE BILIRRUBIN Negative (NEGATIVE); URINE BLOOD Moderate; URINE COLOR Yellow; URINE GLUCOSE Negative (NEGATIVE); URINE KETONE Trace (NEGATIVE); URINE LEUKOCYTE Large; URINE NITRATE Negative; URINE UROBILINOGEN 0.2 E.U./dl
[2024-11-09 08:37] LABS: URINE CAST 3.31 uL (0.0-1.40); URINE EPITHELIAL CELLS 8.5 uL (0.0-38.8)
[2024-11-09 08:52] LABS: URINE BACTERIA > 9821.5 uL (0.0-1933); URINE PROTEIN 100 (NEGATIVE); URINE WBC > 5548.3 uL (0.0-23.2)
[2024-11-09] MEDS ORDERED: INSULIN NPH HUM/REG INSULIN HM 1,000 UNIT/10 ML UNITS SUBCUTANEO ONE (10:06)
[2024-11-09] MEDS ORDERED: PIPERACILLIN/TAZOBACTAM SODIUM 2.25 GM VIAL IV STA (10:45)
[2024-11-09] MEDS ORDERED: VANCOMYCIN HCL 1,000 MG VIAL IV ONE (11:00)
[2024-11-09] MEDS ORDERED: NOREPINEPHRINE BITARTRATE 8 MG in DEXTROSE 5 % IN WATER 250 ML IV SCH (11:00)
[2024-11-09] MEDS ORDERED: GENTAMICIN SULFATE/PF 10 MG/ML VIAL IV ONE (11:00)
[2024-11-09] MEDS ORDERED: GENTAMICIN SULFATE 40 MG/ML VIAL ONE (11:26)
[2024-11-09] MEDS ORDERED: NOREPINEPHRINE BITARTRATE 1 MG/ML AMPUL IV ONE (11:26)
[2024-11-09] MEDS ORDERED: MEROPENEM 500 MG/VIAL VIAL IV SCH (17:00)
[2024-11-09] MEDS ORDERED: VANCOMYCIN HCL 500 MG VIAL IV SCH (17:00)
[2024-11-09] MEDS ORDERED: INSULIN NPH HUM/REG INSULIN HM 1,000 UNIT/10 ML UNITS SUBCUTANEO STA (17:08)
[2024-11-09] MEDS ORDERED: PIPERACILLIN/TAZOBACTAM SODIUM 2.25 GM VIAL IV SCH (21:00)
[2024-11-10] VITALS (10 sets, daily range): BP systolic 70–137; BP diastolic 54–80; O2SAT 100
[2024-11-10 08:25] LABS: HEMATOCRIT 28.5 % (36.0-45.00); HEMOGLOBIN 9.3 g/dL (12.0-15.00); MEAN CELL VOLUME 89.3 fL (80.00-100.00); MEAN CORPUSCULAR HEMOGLOBIN 29.3 pg (27.00-32.0); MEAN CORPUSCULAR HGB CONC 32.8 g/dl (32.0-36.0); PLATELET COUNT 178 K/uL (150-450); RED BLOOD COUNT 3.19 M/uL (4.00-6.00); RED CELL DISTRIBUTION WIDTH 18.1 % (11.5-14.5)
[2024-11-10 09:00] LABS: ALBUMIN 1.8 gm/dL (3.4-5.0); BILIRUBIN TOTAL 0.35 mg/dL (0.3-1.2); CALCIUM 7.9 mg/dL (8.5-10.1); CREATININE SERUM 2.2 mg/dL (0.55-1.02); GFR 22.07; GLOBULINA 3.2 G/DL (2.4-3.5); MAGNESIUM 1.9 mg/dL (1.8-2.4); PHOSPHOROUS 2.2 mg/dL (2.5-4.9); POTASSIUM 4.1 mEq/L (3.5-5.1)
[2024-11-10] MEDS ORDERED: POTASSIUM PHOS,M-BASIC-D-BASIC 15 MM in 0.9 % SODIUM CHLORIDE 250 ML IV NR (12:00)
[2024-11-10] MEDS ORDERED: HEPARIN SODIUM,PORCINE 5,000 UNITS/ML VIAL ONE (18:12)
[2024-11-10 23:29] LABS: HEMATOCRIT 38.2 % (36.0-45.00); HEMOGLOBIN 12.8 g/dL (12.0-15.00); MEAN CELL VOLUME 88.3 fL (80.00-100.00); MEAN CORPUSCULAR HEMOGLOBIN 29.6 pg (27.00-32.0); MEAN CORPUSCULAR HGB CONC 33.6 g/dl (32.0-36.0); PLATELET COUNT 139 K/uL (150-450); RED BLOOD COUNT 4.32 M/uL (4.00-6.00); RED CELL DISTRIBUTION WIDTH 17.5 % (11.5-14.5)
[2024-11-11 04:32] VITALS: BP 86/55; O2SAT 100
[2024-11-11 07:50] VITALS: BP 100/63; O2SAT 100
[2024-11-11] MEDS ORDERED: MIDODRINE HCL 5 MG TABLET PO SCH ×2 (09:00→13:00)
[2024-11-11] MEDS ORDERED: DEXTROSE 5%-WATER 250ML IV.SOLN ONE (13:26)
[2024-11-11 15:08] VITALS: BP 119/71; O2SAT 100
[2024-11-11 20:00] VITALS: BP 123/77; O2SAT 99
[2024-11-11 23:02] VITALS: BP 118/72; O2SAT 100
[2024-11-12 04:00] VITALS: BP 134/73; O2SAT 100
[2024-11-12 06:50] LABS: HEMATOCRIT 37.7 % (36.0-45.00); HEMOGLOBIN 12.6 g/dL (12.0-15.00); MEAN CELL VOLUME 88.1 fL (80.00-100.00); MEAN CORPUSCULAR HEMOGLOBIN 29.5 pg (27.00-32.0); MEAN CORPUSCULAR HGB CONC 33.4 g/dl (32.0-36.0); PLATELET COUNT 155 K/uL (150-450); RED BLOOD COUNT 4.28 M/uL (4.00-6.00); RED CELL DISTRIBUTION WIDTH 17.1 % (11.5-14.5)
[2024-11-12 07:24] LABS: ALBUMIN 1.6 gm/dL (3.4-5.0); BILIRUBIN TOTAL 0.66 mg/dL (0.3-1.2); CALCIUM 7.6 mg/dL (8.5-10.1); CREATININE SERUM 1.55 mg/dL (0.55-1.02); GFR 33.05; MAGNESIUM 1.9 mg/dL (1.8-2.4); PHOSPHOROUS 2.7 mg/dL (2.5-4.9); POTASSIUM 4.06 mEq/L (3.5-5.1); TOTAL PROTEIN 4.6 gm/dL (6.4-8.2)
[2024-11-12 07:39] VITALS: BP 120/91; O2SAT 100
[2024-11-12 12:00] VITALS: BP 94/76; O2SAT 100
[2024-11-12 14:56] VITALS: BP 105/69; O2SAT 100
[2024-11-12] MEDS ORDERED: HEPARIN SODIUM,PORCINE 5,000 UNITS/ML VIAL ONE (16:06)
[2024-11-12] MEDS ORDERED: HEPARIN SODIUM,PORCINE 5,000 UNITS/ML VIAL IJ SCH (16:15)
[2024-11-12 19:33] VITALS: BP 119/72; O2SAT 100
[2024-11-12] MEDS ORDERED: INSULIN LISPRO 1,000 UNIT/10 ML UNITS SUBCUTANEO PRN (20:15)
[2024-11-12 23:05] VITALS: BP 136/92; O2SAT 100
[2024-11-13 04:08] VITALS: BP 126/74; O2SAT 100
[2024-11-13 08:04] VITALS: BP 119/71; O2SAT 100
[2024-11-13] MEDS ORDERED: PANTOPRAZOLE SODIUM 40 MG TABLET.DR PO SCH (09:00)
[2024-11-13 12:00] VITALS: BP 115/70; O2SAT 100
[2024-11-13 14:23] VITALS: BP 118/75; O2SAT 99
[2024-11-13 16:30] VITALS: BP 131/84
[2024-11-14 02:25] VITALS: BP 117/66
[2024-11-14 06:25] LABS: URINE APPEARANCE Turbid; URINE BILIRRUBIN Negative (NEGATIVE); URINE BLOOD Large; URINE COLOR Yellow; URINE GLUCOSE Negative (NEGATIVE); URINE KETONE Negative (NEGATIVE); URINE LEUKOCYTE Large; URINE NITRATE Negative; URINE UROBILINOGEN 0.2 E.U./dl
[2024-11-14 06:29] LABS: URINE CAST 7.16 uL (0.0-1.40); URINE EPITHELIAL CELLS 41.9 uL (0.0-38.8)
[2024-11-14 07:18] LABS: URINE CRYSTALS FEW /HPF; URINE PROTEIN 100 (NEGATIVE); URINE RBC > 10558.9 uL (0.0-20.8); URINE WBC > 5548.3 uL (0.0-23.2); URINE YEAST MANY /hpf
[2024-11-14 09:28] VITALS: BP 103/60
[2024-11-14] MEDS ORDERED: HEPARIN SODIUM,PORCINE 5,000 UNITS/ML VIAL IV NR (16:00)
[2024-11-14 19:31] VITALS: BP 110/77; O2SAT 100
[2024-11-15 01:41] VITALS: BP 98/62; O2SAT 100
[2024-11-15 09:23] VITALS: BP 115/74; O2SAT 97
[2024-11-15 18:45] VITALS: BP 122/70; O2SAT 100
[2024-11-16 01:26] VITALS: BP 112/73
[2024-11-16 08:22] VITALS: BP 100/60
[2024-11-16 18:38] VITALS: BP 130/77; O2SAT 100
[2024-11-17 02:07] VITALS: BP 112/70
[2024-11-17 08:15] VITALS: BP 107/71
[2024-11-17 17:35] VITALS: BP 136/82; O2SAT 99
[2024-11-18 01:58] VITALS: BP 119/74
[2024-11-18 09:23] VITALS: BP 123/76
[2024-11-18 17:36] VITALS: BP 107/70; O2SAT 99
[2024-11-19 02:53] VITALS: BP 94/65
[2024-11-19 09:40] VITALS: BP 132/72
[2024-11-19] MEDS ORDERED: CHLORHEXIDINE GLUCONATE 120 ML BOTTLE TOP SCH (11:30)
[2024-11-19] MEDS ORDERED: SILVER SULFADIAZINE 50 GM,NYSTATIN 30 GM,ZINC OXIDE 30 GM TOP SCH (17:00)
[2024-11-19] MEDS ORDERED: PERMETHRIN 60 GM TUBE TOP SCH (18:00)
[2024-11-19 18:18] VITALS: BP 106/64; O2SAT 100
[2024-11-20 01:13] VITALS: BP 100/67; O2SAT 99
[2024-11-20 06:44] LABS: HEMATOCRIT 35.8 % (36.0-45.00); HEMOGLOBIN 11.7 g/dL (12.0-15.00); MEAN CELL VOLUME 89.7 fL (80.00-100.00); MEAN CORPUSCULAR HEMOGLOBIN 29.3 pg (27.00-32.0); MEAN CORPUSCULAR HGB CONC 32.7 g/dl (32.0-36.0); PLATELET COUNT 163 K/uL (150-450); RED BLOOD COUNT 3.99 M/uL (4.00-6.00); RED CELL DISTRIBUTION WIDTH 18.1 % (11.5-14.5)
[2024-11-20 07:08] LABS: ALBUMIN 1.7 gm/dL (3.4-5.0); BILIRUBIN TOTAL 0.59 mg/dL (0.3-1.2); CALCIUM 7.7 mg/dL (8.5-10.1); CREATININE SERUM 1.06 mg/dL (0.55-1.02); GFR 51.25; GLOBULINA 2.9 G/DL (2.4-3.5); MAGNESIUM 1.7 mg/dL (1.8-2.4); PHOSPHOROUS 2.8 mg/dL (2.5-4.9); POTASSIUM 4.11 mEq/L (3.5-5.1); TOTAL PROTEIN 4.6 gm/dL (6.4-8.2)
[2024-11-20 07:10] LABS: C-REACTIVE PROTEIN 1.81 MG/DL (0.00-0.29)
[2024-11-20 08:54] VITALS: BP 133/78
[2024-11-20] MEDS ORDERED: FLUCONAZOLE IN NACL,ISO-OSM 200 MG/100 ML PIGGYBAG IV NR (14:00)
[2024-11-20 16:47] VITALS: BP 130/76; O2SAT 100
[2024-11-21 01:28] VITALS: BP 119/74
[2024-11-21 09:54] VITALS: BP 92/57; O2SAT 98
[2024-11-21] MEDS ORDERED: LACTOBACILLUS ACIDOPHILUS 1 CAP CAP PO SCH (17:00)
[2024-11-21] MEDS ORDERED: FLUCONAZOLE IN NACL,ISO-OSM 2 MG/ML ML IV SCH (17:00)
[2024-11-21 17:58] VITALS: BP 100/65; O2SAT 100
[2024-11-22 02:07] VITALS: BP 122/65
[2024-11-22 08:00] VITALS: BP 138/79
[2024-11-22 19:41] VITALS: BP 95/60; O2SAT 97
[2024-11-23 04:06] VITALS: BP 101/66
[2024-11-23 09:15] VITALS: BP 127/81
[2024-11-23 18:48] VITALS: BP 143/92; O2SAT 98
[2024-11-24 01:22] VITALS: BP 133/79; O2SAT 99
[2024-11-24 08:16] VITALS: BP 111/70
[2024-11-24 18:04] VITALS: BP 90/60; O2SAT 98
[2024-11-24 22:30] VITALS: BP 96/68; O2SAT 99
[2024-11-25 01:31] VITALS: BP 120/68; O2SAT 98
[2024-11-25 09:16] VITALS: BP 134/71
[2024-11-25 17:32] VITALS: BP 132/62; O2SAT 97
[2024-11-26 00:42] VITALS: BP 95/60; O2SAT 98
[2024-11-26 08:22] VITALS: BP 94/53
[2024-11-26 09:17] LABS: afb smear Negative (.); afb spe proc Concentration (.)
[2024-11-26 16:20] VITALS: BP 155/89
[2024-11-26] MEDS ORDERED: hydrOXYzine HCL 25 MG TABLET PO SCH (17:00)
[2024-11-26] MEDS ORDERED: AMLODIPINE BESYLATE 10 MG TABLET PO SCH (17:00)
[2024-11-26] MEDS ORDERED: IVERMECTIN PO NR (18:00)
[2024-11-27 01:26] VITALS: BP 141/79; O2SAT 99
[2024-11-27 08:45] VITALS: BP 141/94; O2SAT 99
[2024-11-27] MEDS ORDERED: METOPROLOL SUCCINATE 100 MG TAB.SR.24H PO SCH (09:00)
[2024-11-27] MEDS ORDERED: PERMETHRIN 60 GM TUBE TOP SCH (17:00)
[2024-11-27 17:41] VITALS: BP 179/78; O2SAT 95
[2024-11-28 02:35] VITALS: BP 131/81; O2SAT 99
[2024-11-28 07:04] LABS: campy Final report (.)
[2024-11-28] MEDS ORDERED: CHOLESTYRAMINE/ASPARTAME LIGHT 4 G/PKT PACKET PO SCH (09:00)
[2024-11-28 09:54] VITALS: BP 113/72; O2SAT 97
[2024-11-28] MEDS ORDERED: ANIDULAFUNGIN 100 MG VIAL IV NR (14:00)
[2024-11-28 18:28] VITALS: BP 132/79
[2024-11-28] MEDS ORDERED: MEROPENEM 500 MG/VIAL VIAL IV SCH (21:00)
[2024-11-29 01:45] VITALS: BP 141/77; O2SAT 100
[2024-11-29 04:57] VITALS: BP 126/69; O2SAT 100
[2024-11-29 08:10] VITALS: BP 110/64
[2024-11-29] MEDS ORDERED: ANIDULAFUNGIN 100 MG VIAL IV SCH (12:00)
[2024-11-29 17:15] VITALS: BP 129/79
[2024-11-30 02:00] VITALS: BP 131/73; O2SAT 100
[2024-11-30 05:27] VITALS: BP 142/73; O2SAT 98
[2024-11-30 05:30] LABS: HEMATOCRIT 32.2 % (36.0-45.00); HEMOGLOBIN 10.7 g/dL (12.0-15.00); MEAN CELL VOLUME 90.3 fL (80.00-100.00); MEAN CORPUSCULAR HEMOGLOBIN 30.1 pg (27.00-32.0); MEAN CORPUSCULAR HGB CONC 33.3 g/dl (32.0-36.0); PLATELET COUNT 152 K/uL (150-450); RED BLOOD COUNT 3.56 M/uL (4.00-6.00); RED CELL DISTRIBUTION WIDTH 18.9 % (11.5-14.5)
[2024-11-30 05:38] LABS: ALBUMIN 1.8 gm/dL (3.4-5.0); CALCIUM 7.8 mg/dL (8.5-10.1); CREATININE SERUM 1.67 mg/dL (0.55-1.02); GFR 30.33; PHOSPHOROUS 2.5 mg/dL (2.5-4.9); POTASSIUM 5.31 mEq/L (3.5-5.1)
[2024-11-30 08:00] VITALS: BP 128/71
[2024-11-30] MEDS ORDERED: AMINO ACIDS/PROTEIN HYDROLYS 30 ML BLIST.PACK PO SCH (09:00)
[2024-11-30] MEDS ORDERED: CITRIC ACID/SODIUM CITRATE 30 ML BLIST.PACK PO SCH (09:00)
[2024-11-30] MEDS ORDERED: RIVAROXABAN 10 MG TAB PO SCH (09:00)
[2024-11-30] MEDS ORDERED: SUCRALFATE 1 G TABLET PO SCH (11:00)
[2024-11-30 17:29] VITALS: BP 148/77
[2024-11-30] MEDS ORDERED: HEPARIN SODIUM,PORCINE 5,000 UNITS/ML VIAL IJ ONE (20:00)
[2024-12-01 02:24] VITALS: BP 156/79; O2SAT 97
[2024-12-01 09:55] VITALS: BP 133/66; O2SAT 99
[2024-12-01 18:14] VITALS: BP 123/70
[2024-12-02 02:24] VITALS: BP 155/71; O2SAT 100
[2024-12-02 09:56] VITALS: BP 97/63; O2SAT 99
[2024-12-02 20:04] VITALS: BP 139/72; O2SAT 97
[2024-12-03 01:34] VITALS: BP 131/72
[2024-12-03 09:25] VITALS: BP 112/75
[2024-12-03 17:32] VITALS: BP 126/84; O2SAT 100
[2024-12-03 17:40] LABS: CALCIUM 7.7 mg/dL (8.5-10.1); CREATININE SERUM 0.93 mg/dL (0.55-1.02); GFR 59.6; POTASSIUM 3.76 mEq/L (3.5-5.1)
[2024-12-04 01:30] VITALS: BP 138/75
[2024-12-04 08:23] VITALS: BP 129/78; O2SAT 99
[2024-12-04] MEDS ORDERED: HEPARIN SODIUM,PORCINE/PF 100 UNIT/ML SYRINGE IV ONE (17:58)
[2024-12-04 18:13] VITALS: BP 151/77; O2SAT 100
[2024-12-04] MEDS ORDERED: hydrALAZINE HCL 20 MG VIAL ONE (19:40)
[2024-12-05 08:20] VITALS: BP 103/72; O2SAT 99
[2024-12-05 17:07] VITALS: BP 125/70; O2SAT 99
[2024-12-05] MEDS ORDERED: INSULIN NPH HUMAN ISOPHANE 1,000 UNITS/10 ML UNITS SUBCUTANEO STA (22:28)
[2024-12-05] MEDS ORDERED: INSULIN REGULAR, HUMAN 1,000 UNIT/10 ML UNITS IV STA (22:29)
[2024-12-06 00:20] VITALS: BP 110/63
[2024-12-06 08:45] VITALS: BP 117/70; O2SAT 97
[2024-12-06 17:05] VITALS: BP 122/73; O2SAT 99
[2024-12-07 01:07] VITALS: BP 130/60
[2024-12-07 09:35] VITALS: BP 111/71; O2SAT 99
[2024-12-07 14:46] LABS: COVID-19 AG NEGATIVE (NEGATIVE)
[2024-12-07 18:08] VITALS: BP 139/79
[2024-12-08 02:34] VITALS: BP 114/69; O2SAT 99
[2024-12-08 08:58] VITALS: BP 96/61; O2SAT 96
[2024-12-08 17:57] VITALS: BP 141/72
[2024-12-09 02:00] VITALS: BP 115/79; O2SAT 95
[2024-12-09 08:58] VITALS: BP 121/73; O2SAT 98
[2024-12-09 18:39] VITALS: BP 135/75
[2024-12-10 01:35] VITALS: BP 145/82; O2SAT 97
[2024-12-10 09:26] VITALS: BP 147/82; O2SAT 98
[2024-12-10 19:06] VITALS: BP 90/60
[2024-12-10] MEDS ORDERED: VANCOMYCIN HCL 500 MG VIAL IV SCH (21:00)
[2024-12-11 02:32] VITALS: BP 112/67; O2SAT 98
[2024-12-11 08:52] VITALS: BP 122/76; O2SAT 99
[2024-12-11 17:00] VITALS: BP 101/64; O2SAT 100
[2024-12-12 02:59] VITALS: BP 111/67; O2SAT 98
[2024-12-12 08:50] VITALS: BP 121/74; O2SAT 98
== END 2024-12-12 10:02 | disposition home or self-care (01) | DRG 853 ==
LOC: ER 13:47 → SEC-K 21:27 → MEDJ 21:27 → ICU-2 21:27 → SEC-K 21:27 → ICU-2 11-08 07:19 → ICU 11-09 21:42 → MEDJ 11-13 14:34
PROVIDERS: General Practice; Internal Medicine; Internal Medicine Infectious Disease; Internal Medicine Nephrology; ADMIT Internal Medicine; ATTEND Internal Medicine
PROC: B020ZZZ Computerized Tomography (CT Scan) of Brain (ICD-10-PCS; 2024-11-07)
PROC: 4A12X4Z Monitoring of Cardiac Electrical Activity, External Approach (ICD-10-PCS; 2024-11-07)
PROC: 0JBQ0ZZ Excision of Right Foot Subcutaneous Tissue and Fascia, Open Approach (ICD-10-PCS; principal; 2024-11-09)
PROC: 5A1D70Z Performance of Urinary Filtration, Intermittent, Less than 6 Hours Per Day (ICD-10-PCS; 2024-11-10)
PROC: 06HN33Z Insertion of Infusion Device into Left Femoral Vein, Percutaneous Approach (ICD-10-PCS; 2024-11-10)
PROC: B54CZZA Ultrasonography of Left Lower Extremity Veins, Guidance (ICD-10-PCS; 2024-11-10)
PROC: 8E0ZXY6 Isolation (ICD-10-PCS; 2024-11-10)
PROC: 5A1D70Z Performance of Urinary Filtration, Intermittent, Less than 6 Hours Per Day (ICD-10-PCS; 2024-11-12)
PROC: 5A1D70Z Performance of Urinary Filtration, Intermittent, Less than 6 Hours Per Day (ICD-10-PCS; 2024-11-14)
PROC: 5A1D70Z Performance of Urinary Filtration, Intermittent, Less than 6 Hours Per Day (ICD-10-PCS; 2024-11-16)
PROC: 5A1D70Z Performance of Urinary Filtration, Intermittent, Less than 6 Hours Per Day (ICD-10-PCS; 2024-11-19)
PROC: 0JBQ0ZZ Excision of Right Foot Subcutaneous Tissue and Fascia, Open Approach (ICD-10-PCS; 2024-11-20)
PROC: 0JB70ZZ Excision of Back Subcutaneous Tissue and Fascia, Open Approach (ICD-10-PCS; 2024-11-20)
PROC: 5A1D70Z Performance of Urinary Filtration, Intermittent, Less than 6 Hours Per Day (ICD-10-PCS; 2024-11-21)
PROC: 5A1D70Z Performance of Urinary Filtration, Intermittent, Less than 6 Hours Per Day (ICD-10-PCS; 2024-11-23)
PROC: 5A1D70Z Performance of Urinary Filtration, Intermittent, Less than 6 Hours Per Day (ICD-10-PCS; 2024-11-26)
PROC: 0JB70ZZ Excision of Back Subcutaneous Tissue and Fascia, Open Approach (ICD-10-PCS; 2024-11-27)
PROC: 06PYX3Z Removal of Infusion Device from Lower Vein, External Approach (ICD-10-PCS; 2024-11-27)
PROC: 5A1D70Z Performance of Urinary Filtration, Intermittent, Less than 6 Hours Per Day (ICD-10-PCS; 2024-11-28)
PROC: 5A1D70Z Performance of Urinary Filtration, Intermittent, Less than 6 Hours Per Day (ICD-10-PCS; 2024-11-30)
PROC: 5A1D70Z Performance of Urinary Filtration, Intermittent, Less than 6 Hours Per Day (ICD-10-PCS; 2024-12-03)
PROC: 0JBQ0ZZ Excision of Right Foot Subcutaneous Tissue and Fascia, Open Approach (ICD-10-PCS; 2024-12-04)
PROC: 0JB70ZZ Excision of Back Subcutaneous Tissue and Fascia, Open Approach (ICD-10-PCS; 2024-12-04)
PROC: 02PAX3Z Removal of Infusion Device from Heart, External Approach (ICD-10-PCS; 2024-12-04)
PROC: 05HM33Z Insertion of Infusion Device into Right Internal Jugular Vein, Percutaneous Approach (ICD-10-PCS; 2024-12-04)
PROC: B513YZA Fluoroscopy of Right Jugular Veins using Other Contrast, Guidance (ICD-10-PCS; 2024-12-04)
PROC: B246ZZZ Ultrasonography of Right and Left Heart (ICD-10-PCS; 2024-12-05)
PROC: 5A1D70Z Performance of Urinary Filtration, Intermittent, Less than 6 Hours Per Day (ICD-10-PCS; 2024-12-05)
PROC: 5A1D70Z Performance of Urinary Filtration, Intermittent, Less than 6 Hours Per Day (ICD-10-PCS; 2024-12-07)
PROC: 30233N1 Transfusion of Nonautologous Red Blood Cells into Peripheral Vein, Percutaneous Approach (ICD-10-PCS; 2024-12-08)
PROC: 5A1D70Z Performance of Urinary Filtration, Intermittent, Less than 6 Hours Per Day (ICD-10-PCS; 2024-12-10)
DX: A41.01 Sepsis due to Methicillin susceptible Staphylococcus aureus (principal); E11.00 Type 2 diabetes mellitus with hyperosmolarity without nonketotic hyperglycemic-hyperosmolar coma (NKHHC); N18.6 End stage renal disease; R65.21 Severe sepsis with septic shock; E11.10 Type 2 diabetes mellitus with ketoacidosis without coma; T80.211A Bloodstream infection due to central venous catheter, initial encounter; B37.49 Other urogenital candidiasis; I67.89 Other cerebrovascular disease; I12.0 Hypertensive chronic kidney disease with stage 5 chronic kidney disease or end stage renal disease; B37.89 Other sites of candidiasis; L89.152 Pressure ulcer of sacral region, stage 2; L89.612 Pressure ulcer of right heel, stage 2; B86 Scabies; R19.7 Diarrhea, unspecified; I95.3 Hypotension of hemodialysis; D63.1 Anemia in chronic kidney disease; E87.6 Hypokalemia; E11.65 Type 2 diabetes mellitus with hyperglycemia; E11.22 Type 2 diabetes mellitus with diabetic chronic kidney disease; I25.10 Atherosclerotic heart disease of native coronary artery without angina pectoris; E78.5 Hyperlipidemia, unspecified; Z99.2 Dependence on renal dialysis; Z79.4 Long term (current) use of insulin; Z95.0 Presence of cardiac pacemaker; Z74.01 Bed confinement status; E87.5 Hyperkalemia; Y84.1 Kidney dialysis as the cause of abnormal reaction of the patient, or of later complication, without mention of misadventure at the time of the procedure; B96.20 Unspecified Escherichia coli [E. coli] as the cause of diseases classified elsewhere; B95.7 Other staphylococcus as the cause of diseases classified elsewhere

== ENCOUNTER 2024-12-12 12:09 | Emergency (ER) | payer OTHER ==
[~2024-12-12] VITALS: Ht 165.1 cm; Wt 46.7 kg
[~2024-12-12 12:09] MED LIST changes: +ATORVASTATIN CA20 MG; +HUMULIN 70100 UNIT/2; +HYDROCHLOROTH12.5 M2; +NORVASC10 MG; +PRE PROTEIN1 EACH; +PROTONIX40 MG
[2024-12-12] MEDS ORDERED: PERMETHRIN 60 GM TUBE TOP ONE (17:15)
== END 2024-12-13 10:11 | disposition home or self-care (01) ==
LOC: ER 12:09
DX: I12.0 Hypertensive chronic kidney disease with stage 5 chronic kidney disease or end stage renal disease (principal); E11.22 Type 2 diabetes mellitus with diabetic chronic kidney disease; N18.6 End stage renal disease; Z79.4 Long term (current) use of insulin; Z99.2 Dependence on renal dialysis; B86 Scabies

== ENCOUNTER 2024-12-14 11:41 | Inpatient (IN) | payer OTHER ==
[~2024-12-14] VITALS: Ht 152.4 cm; Wt 54.4 kg
[2024-12-14] VITALS (7 sets, daily range): BP systolic 109–124; BP diastolic 64–69; O2SAT 100
[2024-12-14] MEDS ORDERED: 0.9 % SODIUM CHLORIDE 1,000 ML IV SCH ×2 (12:00→17:00)
[2024-12-14] MEDS ORDERED: INSULIN REGULAR, HUMAN 1,000 UNIT/10 ML UNITS IV ONE ×2 (12:00→15:15)
--- NOTE | 2024-12-14 12:11 | NUR ---
SE RECIBE PTE EN AMBULANCIA EN COMPANIA DE CUIDADORA QUIEN REFIERE PRESENTA AZUCAR MISAEL EN LUIS MIGUEL. SE REALIZA DXT Y PRESENTA "HI". SE PRESENTA Y SE UBICA.
[2024-12-14 12:58] LABS: ABG PH 7.259 (7.35-7.45); ABG PO2 158.9 mmHg (80-100); BASE EXCESS -12.5 mmol/l; BICARBONATE 13.1 mmol/l (23-25); SaO2 98.9 %; Tco2 14.1 mmol/l; allen test SATISFACTORY; o2 28 %; puncture site RADIAL LEFT
--- NOTE | 2024-12-14 13:04 | NUR ---
PACIENTE EVALUADA POR QUIEN ORDENA TRATAMIENTO MEDICO, SE LE ORIETNA A PACIENTE Y FAMILIAR Y REFIERE ENTENDER, SE LE COLECTAN MUESTARS Y SE CANALIZA BAJO MEDIDAS ASEPTICAS, SE LE COLOCAN IV FLUIDS, SE MANTIENE BAJO OBSERVACION POR CAMBIOS EN LINDQUIST CONDICION.
[2024-12-14 13:26] LABS: HEMATOCRIT 31.9 % (36.0-45.00); HEMOGLOBIN 9.6 g/dL (12.0-15.00); MEAN CELL VOLUME 99.6 fL (80.00-100.00); MEAN CORPUSCULAR HEMOGLOBIN 30.1 pg (27.00-32.0); MEAN CORPUSCULAR HGB CONC 30.2 g/dl (32.0-36.0); PLATELET COUNT 304 K/uL (150-450); RED CELL DISTRIBUTION WIDTH 20.2 % (11.5-14.5)
[2024-12-14 13:39] LABS: ALBUMIN 2.2 gm/dL (3.4-5.0); BILIRUBIN TOTAL 0.71 mg/dL (0.3-1.2); CALCIUM 8.9 mg/dL (8.5-10.1); CREATININE SERUM 3.58 mg/dL (0.55-1.02); GFR 12.58; GLOBULINA 4.1 G/DL (2.4-3.5); POTASSIUM 4.54 mEq/L (3.5-5.1); TOTAL PROTEIN 6.3 gm/dL (6.4-8.2)
[2024-12-14 14:25] LABS: URINE APPEARANCE Turbid; URINE BILIRRUBIN Negative (NEGATIVE); URINE BLOOD Moderate; URINE COLOR Yellow; URINE KETONE Trace (NEGATIVE); URINE LEUKOCYTE Moderate; URINE NITRATE Negative; URINE PROTEIN 30 (NEGATIVE); URINE UROBILINOGEN 0.2 E.U./dl
[2024-12-14 14:29] LABS: URINE CAST 3.38 uL (0.0-1.40); URINE EPITHELIAL CELLS 10.1 uL (0.0-38.8); URINE RBC 190.1 uL (0.0-20.8); URINE WBC 476.7 uL (0.0-23.2)
[2024-12-14 15:26] LABS: URINE BACTERIA > 9821.5 uL (0.0-1933); URINE GLUCOSE >=1000 MG/DL (NEGATIVE)
[2024-12-14 15:30] LABS: URINE YEAST FEW /hpf
[2024-12-14] MEDS ORDERED: SODIUM CHLORIDE 0.45 % 500 ML IV ONE (17:00)
[2024-12-14] MEDS ORDERED: CITRIC ACID/SODIUM CITRATE 30 ML BLIST.PACK PO ONE ×2 (17:00→17:54)
[2024-12-14] MEDS ORDERED: INSULIN REGULAR, HUMAN 100 UNITS in 0.9 % SODIUM CHLORIDE 100 ML IV SCH (17:00)
[2024-12-14] MEDS ORDERED: CEFTRIAXONE SODIUM 2,000 MG in 0.9 % SODIUM CHLORIDE 100 ML IV SCH (17:01)
[2024-12-14] MEDS ORDERED: ACETAMINOPHEN 500 MG GEL..CAP PO PRN (17:15)
[2024-12-14] MEDS ORDERED: CEFTRIAXONE SODIUM 2,000 MG VIAL ONE (17:54)
[2024-12-14] MEDS ORDERED: INSULIN REGULAR, HUMAN 1,000 UNIT/10 ML UNITS ONE (17:55)
[2024-12-14 18:29] LABS: INR 1.22; MAGNESIUM 1.8 mg/dL (1.8-2.4); PARTIAL THROMBOPLASTIN TIME 34.9 SECONDS (22.0-34.0); PHOSPHOROUS 4.4 mg/dL (2.5-4.9); PROTHROMBIN TIME 13.1 SECONDS (9.0-11.5)
[2024-12-14 19:01] LABS: C-REACTIVE PROTEIN 1.39 MG/DL (0.00-0.29)
[2024-12-14 22:42] LABS: CALCIUM 8.7 mg/dL (8.5-10.1); CREATININE SERUM 3.38 mg/dL (0.55-1.02); GFR 13.44; POTASSIUM 3.04 mEq/L (3.5-5.1)
[2024-12-15] VITALS (10 sets, daily range): BP systolic 100–132; BP diastolic 66–78; O2SAT 99–100
[2024-12-15] MEDS ORDERED: INSULIN NPH HUM/REG INSULIN HM 1,000 UNIT/10 ML UNITS SUBCUTANEO STA (08:36)
[2024-12-15] MEDS ORDERED: DEXTROSE 50 % IN WATER 0.5 G/ML DISP.SYRIN IV PRN (08:45)
[2024-12-15] MEDS ORDERED: INSULIN LISPRO 1,000 UNIT/10 ML UNITS SUBCUTANEO PRN (08:45)
[2024-12-15] MEDS ORDERED: AMINO ACIDS/PROTEIN HYDROLYS 30 ML BLIST.PACK PO SCH (09:00)
[2024-12-15] MEDS ORDERED: AMLODIPINE BESYLATE 10 MG TABLET PO SCH (09:00)
[2024-12-15] MEDS ORDERED: FAMOTIDINE/PF 20 MG in 0.9 % SODIUM CHLORIDE 8 ML IV PUSH SCH (09:00)
[2024-12-15] MEDS ORDERED: ENOXAPARIN SODIUM 30 MG/0.3 ML SYRINGE SUBCUTANEO SCH (09:00)
[2024-12-15 10:01] LABS: CALCIUM 8.6 mg/dL (8.5-10.1); CREATININE SERUM 3.18 mg/dL (0.55-1.02); GFR 14.42; POTASSIUM 3.28 mEq/L (3.5-5.1)
[2024-12-15] MEDS ORDERED: INSULIN NPH HUM/REG INSULIN HM 1,000 UNIT/10 ML UNITS SUBCUTANEO ONE (10:09)
[2024-12-15] MEDS ORDERED: INSULIN LISPRO 1,000 UNIT/10 ML UNITS SUBCUTANEO ONE (18:30)
[2024-12-15] MEDS ORDERED: POTASSIUM CHLORIDE 20MEQ/100ML H2O PB IV ONE (18:30)
[2024-12-15 23:25] LABS: CALCIUM 8.2 mg/dL (8.5-10.1); CREATININE SERUM 3.15 mg/dL (0.55-1.02); GFR 14.58; POTASSIUM 3.87 mEq/L (3.5-5.1)
[2024-12-16 02:23] VITALS: BP 115/77; O2SAT 100
[2024-12-16 08:00] VITALS: BP 108/68; O2SAT 97
[2024-12-16] MEDS ORDERED: INSULIN NPH HUM/REG INSULIN HM 1,000 UNIT/10 ML UNITS SUBCUTANEO SCH (08:00)
[2024-12-16 17:47] VITALS: BP 130/60
[2024-12-16] MEDS ORDERED: MEROPENEM 500 MG/VIAL VIAL IV SCH (21:00)
[2024-12-17 01:15] VITALS: BP 108/65; O2SAT 98
[2024-12-17 09:59] VITALS: BP 100/51; O2SAT 97
[2024-12-17] MEDS ORDERED: VANCOMYCIN HCL 1,000 MG VIAL IV NR (15:30)
[2024-12-17] MEDS ORDERED: HEPARIN SODIUM,PORCINE 5,000 UNITS/ML VIAL IJ NR (16:30)
[2024-12-17 16:45] VITALS: BP 101/70
[2024-12-17] MEDS ORDERED: VANCOMYCIN HCL 500 MG VIAL IV SCH (17:00)
[2024-12-17] MEDS ORDERED: LACTOBACILLUS ACIDOPHILUS 1 CAP CAP PO SCH (17:00)
[2024-12-18 02:56] VITALS: BP 116/73; O2SAT 99
[2024-12-18 08:44] VITALS: BP 94/62; O2SAT 99
[2024-12-18] MEDS ORDERED: FAMOtidine 20 MG TABLET PO SCH (09:00)
[2024-12-18 10:23] LABS: HEMATOCRIT 29.2 % (36.0-45.00); MEAN CELL VOLUME 88.8 fL (80.00-100.00); MEAN CORPUSCULAR HGB CONC 34.3 g/dl (32.0-36.0); PLATELET COUNT 190 K/uL (150-450); RED BLOOD COUNT 3.29 M/uL (4.00-6.00)
[2024-12-18 10:25] LABS: MEAN CORPUSCULAR HEMOGLOBIN 30.3 pg (27.00-32.0)
[2024-12-18 11:21] LABS: ALBUMIN 1.9 gm/dL (3.4-5.0); BILIRUBIN TOTAL 0.71 mg/dL (0.3-1.2); CALCIUM 8.1 mg/dL (8.5-10.1); CREATININE SERUM 2.15 mg/dL (0.55-1.02); GFR 22.66; GLOBULINA 3.5 G/DL (2.4-3.5); MAGNESIUM 1.8 mg/dL (1.8-2.4); POTASSIUM 3.92 mEq/L (3.5-5.1); TOTAL PROTEIN 5.4 gm/dL (6.4-8.2)
[2024-12-18 11:23] LABS: C-REACTIVE PROTEIN 2.83 MG/DL (0.00-0.29)
[2024-12-18 17:20] VITALS: BP 90/61; O2SAT 100
[2024-12-18 22:19] VITALS: BP 128/71; O2SAT 100
[2024-12-19 00:09] VITALS: O2SAT 95
[2024-12-19 02:29] VITALS: BP 106/67; O2SAT 99
[2024-12-19 08:09] LABS: PH,URINE 5.5 (5.0-8.0); URINE APPEARANCE Cloudy; URINE BILIRRUBIN Negative (NEGATIVE); URINE BLOOD Moderate; URINE COLOR Yellow; URINE GLUCOSE Negative (NEGATIVE); URINE KETONE Negative (NEGATIVE); URINE LEUKOCYTE Large; URINE NITRATE Negative; URINE PROTEIN 30 (NEGATIVE); URINE UROBILINOGEN 0.2 E.U./dl
[2024-12-19 08:11] LABS: URINE BACTERIA 1774.7 uL (0.0-1933); URINE EPITHELIAL CELLS 2.5 uL (0.0-38.8); URINE RBC 5912.3 uL (0.0-20.8); URINE WBC 1325.2 uL (0.0-23.2)
[2024-12-19 08:43] LABS: URINE CRYSTALS FEW /HPF; URINE YEAST MANY /hpf
[2024-12-19 11:00] VITALS: BP 120/62; O2SAT 95
[2024-12-19] MEDS ORDERED: HEPARIN SODIUM,PORCINE 5,000 UNITS/ML VIAL ONE (17:15)
[2024-12-19 17:27] VITALS: BP 120/76; O2SAT 100
[2024-12-19 22:58] VITALS: BP 118/60
[2024-12-20 02:50] VITALS: BP 99/59; O2SAT 99
[2024-12-20 07:32] LABS: MEAN CELL VOLUME 87.5 fL (80.00-100.00); MEAN CORPUSCULAR HGB CONC 34.5 g/dl (32.0-36.0); RED BLOOD COUNT 2.64 M/uL (4.00-6.00)
[2024-12-20 07:37] LABS: HEMATOCRIT 23.1 % (36.0-45.00); MEAN CORPUSCULAR HEMOGLOBIN 30.3 pg (27.00-32.0)
[2024-12-20 07:39] LABS: PLATELET COUNT 134 K/uL (150-450)
[2024-12-20 08:02] LABS: ALBUMIN 1.6 gm/dL (3.4-5.0); BILIRUBIN TOTAL 0.45 mg/dL (0.3-1.2); CALCIUM 7.6 mg/dL (8.5-10.1); CREATININE SERUM 1.52 mg/dL (0.55-1.02); GFR 33.81; GLOBULINA 3.1 G/DL (2.4-3.5); POTASSIUM 3.18 mEq/L (3.5-5.1); TOTAL PROTEIN 4.7 gm/dL (6.4-8.2)
[2024-12-20 08:08] VITALS: BP 108/67; O2SAT 97
[2024-12-20] MEDS ORDERED: POTASSIUM CHLORIDE 20MEQ/100ML H2O PB IV NR (09:00)
[2024-12-20 17:36] VITALS: BP 144/85; O2SAT 100
[2024-12-20 22:21] VITALS: BP 108/66; O2SAT 98
[2024-12-21] VITALS: BP 143/74; O2SAT 95
[2024-12-21] MEDS ORDERED: EPOETIN ALFA-EPBX 10,000 UNIT/ML VIAL (Retacrit) SUBCUTANEO SCH (09:00)
[2024-12-21 10:41] VITALS: BP 88/54; O2SAT 100
[2024-12-21 17:40] VITALS: BP 104/66
[2024-12-21 18:26] VITALS: BP 104/66
[2024-12-22 02:00] VITALS: BP 106/68; O2SAT 99
[2024-12-22 07:11] LABS: ob NEGATIVE (NEGATIVE)
[2024-12-22 07:50] LABS: URINE APPEARANCE Cloudy; URINE BILIRRUBIN Negative (NEGATIVE); URINE BLOOD Moderate; URINE COLOR Yellow; URINE GLUCOSE Negative (NEGATIVE); URINE KETONE Negative (NEGATIVE); URINE LEUKOCYTE Large; URINE NITRATE Negative; URINE PROTEIN 30 (NEGATIVE); URINE UROBILINOGEN 0.2 E.U./dl
[2024-12-22 07:51] LABS: URINE BACTERIA 1708.6 uL (0.0-1933); URINE CAST 1.47 uL (0.0-1.40); URINE EPITHELIAL CELLS 4.1 uL (0.0-38.8); URINE RBC 6187.6 uL (0.0-20.8); URINE WBC 843.5 uL (0.0-23.2)
[2024-12-22 08:09] LABS: URINE YEAST MANY /hpf
[2024-12-22 08:56] LABS: HEMATOCRIT 23.8 % (36.0-45.00); MEAN CELL VOLUME 90.1 fL (80.00-100.00); MEAN CORPUSCULAR HGB CONC 33.7 g/dl (32.0-36.0); PLATELET COUNT 151 K/uL (150-450); RED BLOOD COUNT 2.64 M/uL (4.00-6.00); RED CELL DISTRIBUTION WIDTH 18.5 % (11.5-14.5)
[2024-12-22 09:04] LABS: MEAN CORPUSCULAR HEMOGLOBIN 30.3 pg (27.00-32.0)
[2024-12-22 09:09] LABS: ALBUMIN 1.7 gm/dL (3.4-5.0); BILIRUBIN TOTAL 0.49 mg/dL (0.3-1.2); CALCIUM 8.1 mg/dL (8.5-10.1); CREATININE SERUM 2.24 mg/dL (0.55-1.02); GFR 21.61; GLOBULINA 3.4 G/DL (2.4-3.5); POTASSIUM 4.16 mEq/L (3.5-5.1); TOTAL PROTEIN 5.1 gm/dL (6.4-8.2)
[2024-12-22 10:24] VITALS: BP 112/70; O2SAT 100
[2024-12-22 17:01] VITALS: BP 117/70; O2SAT 100
[2024-12-22] MEDS ORDERED: HEPARIN SODIUM,PORCINE 5,000 UNITS/ML VIAL ONE (17:44)
[2024-12-22] MEDS ORDERED: HEPARIN SODIUM,PORCINE 5,000 UNITS/ML VIAL IJ ONE (18:00)
[2024-12-22 20:58] LABS: FECAL LEUKOCYTES NEGATIVE (NEGATIVE)
[2024-12-22 21:30] VITALS: BP 120/70; O2SAT 100
[2024-12-22 23:29] LABS: HEMATOCRIT 30.4 % (36.0-45.00); HEMOGLOBIN 10.4 g/dL (12.0-15.00); MEAN CORPUSCULAR HEMOGLOBIN 29.3 pg (27.00-32.0); MEAN CORPUSCULAR HGB CONC 34.1 g/dl (32.0-36.0); RED BLOOD COUNT 3.53 M/uL (4.00-6.00); RED CELL DISTRIBUTION WIDTH 19.8 % (11.5-14.5)
[2024-12-22 23:31] LABS: PLATELET COUNT 115 K/uL (150-450)
[2024-12-23 00:10] VITALS: BP 100/64; O2SAT 99
[2024-12-23 08:08] VITALS: BP 107/73
[2024-12-23] MEDS ORDERED: CHOLESTYRAMINE/ASPARTAME LIGHT 4 G/PKT PACKET PO SCH (09:00)
[2024-12-23 17:08] VITALS: BP 111/70
[2024-12-23 21:45] VITALS: BP 120/73
[2024-12-24 00:33] VITALS: BP 119/71; O2SAT 98
[2024-12-24 07:25] LABS: HEMATOCRIT 31.3 % (36.0-45.00); HEMOGLOBIN 10.7 g/dL (12.0-15.00); MEAN CELL VOLUME 86.2 fL (80.00-100.00); MEAN CORPUSCULAR HEMOGLOBIN 29.5 pg (27.00-32.0); MEAN CORPUSCULAR HGB CONC 34.2 g/dl (32.0-36.0); PLATELET COUNT 167 K/uL (150-450); RED BLOOD COUNT 3.63 M/uL (4.00-6.00); RED CELL DISTRIBUTION WIDTH 20.1 % (11.5-14.5)
[2024-12-24 08:22] VITALS: BP 129/78
[2024-12-24 18:24] VITALS: BP 100/68
[2024-12-25 02:16] VITALS: BP 100/68
[2024-12-25] MEDS ORDERED: AMLODIPINE BESY10 MG PO (07:24)
[2024-12-25] MEDS ORDERED: CHOLESTYRAMINE L4 GM PO (07:24)
[2024-12-25] MEDS ORDERED: ATORVASTATIN CA20 MG PO (07:25)
[2024-12-25] MEDS ORDERED: PRE PROTEIN1 EACH PO (07:25)
[2024-12-25] MEDS ORDERED: INSULIN LI100 UNIT/1 SUBCUTANEO (07:26)
[2024-12-25] MEDS ORDERED: HUMULIN 70100 UNIT/2 SUBCUTANEO (07:26)
[2024-12-25] MEDS ORDERED: INTESTINEX680 M1 PO (07:26)
[2024-12-25] MEDS ORDERED: PROTEINEX-18 LI30 ML PO (07:27)
[2024-12-25 09:28] VITALS: BP 96/59; O2SAT 98
[2024-12-25 23:05] LABS: GIARDIA LAMBLIA EIA Negative (Negative)
== END 2024-12-25 11:44 | disposition home or self-care (01) | DRG 871 ==
LOC: ER 11:41 → ICU-2 17:22 → MEDJ 12-15 20:56
PROVIDERS: Emergency Medicine; General Practice; Internal Medicine; Internal Medicine Endocrinology, Diabetes & Metabolism; Internal Medicine Infectious Disease; ADMIT Internal Medicine; ATTEND Internal Medicine
PROC: 02HV33Z Insertion of Infusion Device into Superior Vena Cava, Percutaneous Approach (ICD-10-PCS; principal; 2024-12-15)
PROC: 4A12X4Z Monitoring of Cardiac Electrical Activity, External Approach (ICD-10-PCS; 2024-12-15)
PROC: 8E0ZXY6 Isolation (ICD-10-PCS; 2024-12-16)
PROC: 5A1D70Z Performance of Urinary Filtration, Intermittent, Less than 6 Hours Per Day (ICD-10-PCS; 2024-12-19)
PROC: 30233N1 Transfusion of Nonautologous Red Blood Cells into Peripheral Vein, Percutaneous Approach (ICD-10-PCS; 2024-12-22)
PROC: 5A1D70Z Performance of Urinary Filtration, Intermittent, Less than 6 Hours Per Day (ICD-10-PCS; 2024-12-22)
DX: A41.9 Sepsis, unspecified organism (principal); E11.00 Type 2 diabetes mellitus with hyperosmolarity without nonketotic hyperglycemic-hyperosmolar coma (NKHHC); N18.6 End stage renal disease; N39.0 Urinary tract infection, site not specified; I12.0 Hypertensive chronic kidney disease with stage 5 chronic kidney disease or end stage renal disease; E11.65 Type 2 diabetes mellitus with hyperglycemia; Z79.4 Long term (current) use of insulin; E86.0 Dehydration; D64.89 Other specified anemias; L89.159 Pressure ulcer of sacral region, unspecified stage; Z99.2 Dependence on renal dialysis; E78.49 Other hyperlipidemia; B96.1 Klebsiella pneumoniae [K. pneumoniae] as the cause of diseases classified elsewhere; B86 Scabies; E83.51 Hypocalcemia; E11.22 Type 2 diabetes mellitus with diabetic chronic kidney disease

== ENCOUNTER 2025-01-09 15:01 | Emergency (ER) | payer OTHER ==
[~2025-01-09] VITALS: Ht 167.6 cm; Wt 45.4 kg
[~2025-01-09 15:01] MED LIST changes: +AMLODIPINE BESY10 MG PO; +CHOLESTYRAMINE L4 GM PO; +INTESTINEX680 M1 PO; +PRE PROTEIN1 EACH PO
[2025-01-09 17:08] LABS: HEMATOCRIT 40.2 % (36.0-45.00); HEMOGLOBIN 12.9 g/dL (12.0-15.00); MEAN CELL VOLUME 90.1 fL (80.00-100.00); MEAN CORPUSCULAR HEMOGLOBIN 28.9 pg (27.00-32.0); MEAN CORPUSCULAR HGB CONC 32.1 g/dl (32.0-36.0); PLATELET COUNT 240 K/uL (150-450); RED BLOOD COUNT 4.46 M/uL (4.00-6.00); RED CELL DISTRIBUTION WIDTH 19.3 % (11.5-14.5)
[2025-01-09 17:49] LABS: ALBUMIN 1.6 gm/dL (3.4-5.0); BILIRUBIN TOTAL 0.88 mg/dL (0.3-1.2); CALCIUM 7.6 mg/dL (8.5-10.1); CREATININE SERUM 1.51 mg/dL (0.55-1.02); GFR 34.07; GLOBULINA 3.8 G/DL (2.4-3.5); POTASSIUM 3.25 mEq/L (3.5-5.1); TOTAL PROTEIN 5.4 gm/dL (6.4-8.2)
== END 2025-01-09 20:25 | disposition home or self-care (01) ==
LOC: ER 15:01
PROVIDERS: General Practice
DX: I95.9 Hypotension, unspecified (principal)

== ENCOUNTER 2025-02-01 11:52 | Emergency (ER) | payer OTHER ==
[~2025-02-01] VITALS: Ht 152.4 cm; Wt 44.5 kg
[2025-02-01] MEDS ORDERED: 0.9 % SODIUM CHLORIDE 1,000 ML IV SCH (12:15)
[2025-02-01] MEDS ORDERED: INSULIN REGULAR, HUMAN 1,000 UNIT/10 ML UNITS IV ONE (12:15)
[2025-02-01 12:54] LABS: BASO % 0.9 % (0.1-1.2); EOS # 0.13 (0.04-0.54); EOS % 1.7 % (0.7-7.0); HEMATOCRIT 29.2 % (34.1-44.9); HEMOGLOBIN 9.4 g/dL (11.2-15.7); LYMPH # 1.11 (1.18-3.74); LYMPH % 14.4 % (19.3-53.1); MONO % 3.9 % (4.7-12.5); NEUT # 6.08 (1.56-6.13); NEUT % 78.7 % (34.0-71.1); PLATELET COUNT 230 K/uL (163-369); RED BLOOD COUNT 3.36 M/uL (3.93-5.22); RED CELL DISTRIBUTION WIDTH 17.7 % (11.6-14.4)
[2025-02-01 13:45] LABS: CALCIUM 7.5 mg/dL (8.5-10.1); CREATININE SERUM 3.07 mg/dL (0.55-1.02); GFR 15.02; POTASSIUM 3.5 mEq/L (3.5-5.1)
== END 2025-02-01 21:36 | disposition home or self-care (01) ==
LOC: ER 13:11
PROVIDERS: Emergency Medicine
DX: E11.65 Type 2 diabetes mellitus with hyperglycemia (principal); Z79.4 Long term (current) use of insulin; E11.22 Type 2 diabetes mellitus with diabetic chronic kidney disease; N18.6 End stage renal disease; Z99.2 Dependence on renal dialysis; I12.0 Hypertensive chronic kidney disease with stage 5 chronic kidney disease or end stage renal disease